=== PATIENT | male | born 1995 | race Caucasian/White ===

== ENCOUNTER 2017-07-11 08:23 | Inpatient (IN) | payer OTHER ==
[2017-07-11 10:33] VITALS: BMI 21.0
--- NOTE | 2017-07-11 12:53 | HP ---
COWS - Scale Resting Pulse: 0= [place] 80 or Below Sweatin=Flushed/Facial Moisture Restless Observation: 1= Difficult to Sit Still Pupil Size: 0= Normal to Room Light Bone or Joint Aches: 2= Severe Diffuse Aches Runny Nose/ Eye Tearin= Runny Nose/Eyes GI Upset > 30mins: 2= Nausea/Diarrhea Tremor Observation: 2= Slight Tremor Visible Yawning Observation: 2= >3x During Session Anxiety or Irritability: 2=Irritable/Anxious Goose Flesh Skin: 3=Piloerection COWS Score: 18 CIWA Score - CIWA Score Nausea/Vomitin-No Nausea/No Vomiting Muscle Tremors: 4-Moderate,w/Arms Extend Anxiety: 3 Agitation: 4-Moderately Restless Paroxysmal Sweats: 3 Orientation: 0-Oriented Tacttile Disturbances: 0-None Auditory Disturbances: 0-None Visual Disturbances: 0-None Headache: 2-Mild CIWA-Ar Total Score: 16 Admission ROS S - HPI Chief Complaint: I am here for detox. Allergies/Adverse Reactions: Allergies Allergy/AdvReac Type Severity Reaction Status Date / Time No Known Allergies Allergy Verified 07/11/17 10:18 History of Present Illness: pt is a 21yr old male with a history of alcohol, percocet and cannabis dependence seeking detox for treatment. Exam Limitations: No Limitations - Ebola screening Have you traveled outside of the country in the last 21 days: No Have you had contact with anyone from an Ebola affected area: No Have you been sick,other than usual withdrawal symptoms: No Do you have a fever: No - Review of Systems Constitutional: Chills, Diaphoresis, Loss of Appetite, Night Sweats, Changes in sleep EENT: reports: Tearing, Nose Congestion Respiratory: reports: Cough Cardiac: reports: No Symptoms Reported GI: reports: Nausea, Poor Appetite, Poor Fluid Intake, Abdominal cramping : reports: No Symptoms Reported Musculoskeletal: reports: Back Pain, Joint Pain Integumentary: reports: Flushing, Sweating Neuro: reports: Headache, Tingling, Tremors Endocrine: reports: Excessive Sweating, Flushing, Intolerance to Cold, Intolerance to Heat Hematology: reports: No Symptoms Reported Psychiatric: reports: No Sypmtoms Reported, Judgement Intact, Mood/Affect Appropiate, Orientated x3, Agitated, Anxious Other Systems: Reviewed and Negative Patient History - Patient Medical History Hx Anemia: No Hx Asthma: No Hx Chronic Obstructive Pulmonary Disease (COPD): No Hx Cancer: No Hx Cardiac Disorders: No Hx Congestive Heart Failure: No Hx Hypertension: No Hx Hypercholesterolemia: No Hx Pacemaker: No HX Cerebrovascular Accident: No Hx Seizures: No Hx Diabetes: No Hx Gastrointestinal Disorders: No Hx Liver Disease: No Hx Genitourinary Disorders: No Hx Sexually Transmitted Disorders: No Hx Renal Disease (ESRD): No Hx Thyroid Disease: No Hx Human Immunodeficiency Virus (HIV): No (negative) Hx Hepatitis C: No Hx Depression: No Hx Suicide Attempt: No (denies) Hx Bipolar Disorder: No Hx Schizophrenia: No - Patient Surgical History Past Surgical History: No Hx Neurologic Surgery: No Hx Cataract Extraction: No Hx Cardiac Surgery: No Hx Lung Surgery: No Hx Breast Surgery: No Hx Breast Biopsy: No Hx Abdominal Surgery: No Hx Appendectomy: No Hx Cholecystectomy: No Hx Genitourinary Surgery: No Hx Section: No Hx Orthopedic Surgery: No Anesthesia Reaction: No - PPD History Previous Implant?: Yes Documented Results: Negative w/o proof Implanted On Prior R Admission?: No PPD to be Administered?: Yes - Reproductive History Patient is a Female of Child Bearing Age (11 -55 yrs old): No - Smoking Cessation Smoking history: Current every day smoker Have you smoked in the past 12 months: Yes Aproximately how many cigarettes per day: 20 Hx Chewing Tobacco Use: No Initiated information on smoking cessation: Yes 'Breaking Loose' booklet given: 07/11/17 - Substance & Tx. History Hx Alcohol Use: Yes Hx Substance Use: Yes Substance Use Type: Alcohol, Heroin, Marijuana Hx Substance Use Treatment: No - Substances Abused Percocet Route: Oral Frequency: Daily Amount used: 4 tabs. (10 mg.) Age of first use: 20 Date of Last Use: 07/09/17 Alcohol-cognac Route: Oral Frequency: Daily Amount used: 2 pts. Age of first use: 20 Date of Last Use: 07/09/17 Marijuana Route: Smoking Frequency: Daily Amount used: $10 Age of first use: 18 Date of Last Use: 07/09/17 Family Disease History - Family Disease History Family History: Denies Admission Physical Exam BHS - Vital Signs Vital Signs: Vital Signs - 24 hr 07/11/17 10:19 Temperature 97.6 F Pulse Rate 76 Respiratory 18 Rate Blood Pressure 130/86 - Physical General Appearance: Yes: Appropriately Dressed, Moderate Distress, Tremorous, Irritable, Sweating, Anxious HEENTM: Yes: Hearing grossly Normal, Normal Voice, Nasal Congestion, Rhinorrhea Respiratory: Yes: Lungs Clear, Normal Breath Sounds, No Respiratory Distress Neck: Yes: No masses,lesions,Nodules Breast: Yes: Within Normal Limits Cardiology: Yes: Regular Rhythm, Regular Rate, S1, S2 Abdominal: Yes: Normal Bowel Sounds, Non Tender, Soft Genitourinary: Yes: Within Normal Limits Back: Yes: Normal Inspection Musculoskeletal: Yes: Back pain Extremities: Yes: Normal Capillary Refill, Normal Inspection, Tremors Neurological: Yes: Fully Oriented, Alert, Normal Response Integumentary: Yes: Normal Color, Diaphoresis Lymphatic: Yes: Within Normal Limits - Diagnostic (1) Alcohol dependence with uncomplicated withdrawal Current Visit: Yes Status: Chronic (2) Opioid dependence, uncomplicated Current Visit: Yes Status: Chronic Cleared for Admission [facility] - Detox or Rehab [facility] Level of Care: Medically Managed Detox Regimen/Protocol: Methadone/Librium [facility] Breath Alcohol Content Breath Alcohol Content: 0 Urine Drug Screen - Results Drug Screen Negative: No Urine Drug Screen Results: THC-Marijuana, OPI-Opiates, BZO-Benzodiazepines, OXY- Oxycodone
[2017-07-11] MEDS ORDERED: LOPERAMIDE HCL 2 MG CAPSULE PO PRN (13:26)
[2017-07-11] MEDS ORDERED: diphenhydrAMINE HCL 50 MG CAPSULE PO PRN (13:26)
[2017-07-11] MEDS ORDERED: NICOTINE POLACRILEX 4 MG GUM BC PRN (13:26)
[2017-07-11] MEDS ORDERED: IBUPROFEN 400 MG TABLET (FP) PO PRN (13:26)
[2017-07-11] MEDS ORDERED: MENTHOL/PHENOL 1 EACH UD MM PRN (13:26)
[2017-07-11] MEDS ORDERED: chlordiazePOXIDE HCL 25 MG CAPSULE PO PRN (13:26)
[2017-07-11] MEDS ORDERED: MAGNESIUM HYDROX 2400MG/30ML ORAL SUSPENSION 30 ML CUP PO PRN (13:26)
[2017-07-11] MEDS ORDERED: MAG HYDROX/AL HYDROX/SIMETH 30 ML UNIT-DOSE CUP PO PRN (13:26)
[2017-07-11] MEDS ORDERED: MAGNESIUM CITRATE 300 ML BOTTLE PO PRN (13:26)
[2017-07-11] MEDS ORDERED: hydrOXYzine PAMOATE 50 MG CAPSULE (FP) PO PRN (13:26)
[2017-07-11] MEDS ORDERED: guaiFENesin/D-METHORPHAN HB 10 ML UNIT-DOSE CUPS PO PRN (13:26)
[2017-07-11] MEDS ORDERED: ACETAMINOPHEN 325 MG TABLET (FP) PO PRN (13:26)
[2017-07-11] MEDS ORDERED: P-EPHED 60MG/TRIPROLIDI 2.5MG TABLET PO PRN (13:26)
[2017-07-11] MEDS ORDERED: chlordiazePOXIDE HCL 25 MG CAPSULE PO ONE (14:00)
[2017-07-11] MEDS ORDERED: METHADONE HCL 10 MG TABLET (FOR DETOX USE ONLY) PO ONE ×2 (14:00→23:00)
[2017-07-11 16:59] LABS: URINE APPEARANCE CLEAR; URINE BILIRUBIN NEGATIVE (NEGATIVE); URINE BLOOD NEGATIVE (NEGATIVE); URINE COLOR STRAW; URINE GLUCOSE (UA) NEGATIVE (NEGATIVE); URINE KETONE NEGATIVE (NEGATIVE); URINE LEUK ESTERASE NEGATIVE (NEGATIVE); URINE NITRITE NEGATIVE (NEGATIVE); URINE PROTEIN NEGATIVE (NEGATIVE); URINE UROBILINOGEN NEGATIVE mg/dL (0.2-1.0)
[2017-07-11] MEDS: chlordiazePOXIDE HCL 25 MG CAPSULE PO SCH ×2 (17:16→22:30)
[2017-07-11] MEDS: THIAMINE HCL 100 MG TABLET (FP) PO SCH (22:30)
[2017-07-12] MEDS: chlordiazePOXIDE HCL 25 MG CAPSULE PO SCH ×4 (05:26→22:18)
[2017-07-12 09:48] LABS: MCH 29.5 pg (25.7-33.7); MCHC 34.3 g/dl (32.0-35.9); MEAN PLT VOLUME 9.4 fl (7.5-11.1); PLATELET COUNT 297 K/MM3 (134-434); RDW 12.5 % (11.9-15.9); WHITE BLOOD COUNT 3.5 K/mm3 (4.0-10.0)
[2017-07-12 10:00] LABS: ALBUMIN 4.5 g/dl (3.4-5.0); ANION GAP 7 (8-16); CALCIUM 10.5 mg/dL (8.5-10.1); CO2 29 mmol/L (21-32); CREATININE 0.9 mg/dL (0.7-1.3); GLUCOSE,RANDOM 85 mg/dL (74-106); SGOT/AST 17 U/L (15-37); SGPT/ALT 20 U/L (12-78); TOT PROT 8.6 g/dl (6.4-8.2)
[2017-07-12] MEDS ORDERED: METHADONE HCL 10 MG TABLET (FOR DETOX USE ONLY) PO SCH (10:00)
[2017-07-12] MEDS ORDERED: PRENATAL VITAMINS W/ FOLIC ACID TABLET (FP) PO SCH (10:00)
[2017-07-12] MEDS ORDERED: NICOTINE 21 MG/24 HOURS TOPICAL PATCH TD SCH (10:00)
[2017-07-12 10:01] LABS: ALK PHOS 134 U/L (45-117)
--- NOTE | 2017-07-12 11:36 | EKG ---
Test Reason : Blood Pressure : / mmHG Vent. Rate : 061 BPM Atrial Rate : 061 BPM P-R Int : 130 ms QRS Dur : 102 ms QT Int : 390 ms P-R-T Axes : 055 070 054 degrees QTc Int : 392 ms SINUS RHYTHM WITH MARKED SINUS ARRHYTHMIA OTHERWISE NORMAL ECG NO PREVIOUS ECGS AVAILABLE Confirmed by TATY NAYLOR, NADINE ([id number]) on 07/12/2017 11:36:51 AM Referred By: Confirmed By:NADINE POSEY MD
--- NOTE | 2017-07-12 14:01 | PN ---
[facility] CIWA - CIWA Score Nausea/Vomitin-Mild Nausea/No Vomiting Muscle Tremors: 5 Anxiety: 3 Agitation: 1-Slight > Activity Paroxysmal Sweats: 3 Orientation: 0-Oriented Tacttile Disturbances: 1-Very Mild Itch/Numbness Auditory Disturbances: 2-Mild Harshness/Frighten Visual Disturbances: 2-Mild Sensitivity Headache: 0-None Present CIWA-Ar Total Score: 18 S COWS - Scale Resting Pulse: 1= [place] 81-100 Sweatin= Chills/Flushing Restless Observation: 1= Difficult to Sit Still Pupil Size: 0= Normal to Room Light Bone or Joint Aches: 1= Mild Discomfort Runny Nose/ Eye Tearin= Runny Nose/Eyes GI Upset > 30mins: 0= None Tremor Observation of Outstretched Hands: 2= Slight Tremor Visible Yawning Observation: 2= >3x During Session Anxiety or Irritability: 2=Irritable/Anxious Goose Flesh Skin: 0=Smooth Skin COWS Score: 12 S Progress Note (SOAP) Subjective: Tremors, Sweating, Interrupted sleep. Objective: PT. A & O X 3, OBSERVED AMBULATING ON UNIT. NO ACUTE DISTRESS. 07/12/17 13:59 Vital Signs Temperature 98.2 F 07/12/17 13:43 Pulse Rate 88 07/12/17 13:43 Respiratory Rate 18 07/12/17 13:43 Blood Pressure 124/89 07/12/17 13:43 O2 Sat by Pulse Oximetry (%) Laboratory Tests 07/11/17 07/12/17 07/12/17 15:00 06:00 06:00 WBC 3.5 L RBC 5.45 Hgb 16.1 Hct 46.9 MCV 86.0 MCH 29.5 MCHC 34.3 RDW 12.5 Plt Count 297 MPV 9.4 Sodium 138 Potassium 4.4 Chloride 102 Carbon Dioxide 29 Anion Gap 7 L BUN 9 Creatinine 0.9 Creat Clearance w eGFR > 60 Random Glucose 85 Calcium 10.5 H Total Bilirubin 1.0 AST 17 ALT 20 Alkaline Phosphatase 134 H Total Protein 8.6 H Albumin 4.5 Urine Color Straw Urine Appearance Clear Urine pH 6.0 Ur Specific [place] 1.015 Urine Protein Negative Urine Glucose (UA) Negative Urine Ketones Negative Urine Blood Negative Urine Nitrite Negative Urine Bilirubin Negative Urine Urobilinogen Negative Ur Leukocyte Esterase Negative RPR Titer 07/12/17 06:00 WBC RBC Hgb Hct MCV MCH MCHC RDW Plt Count MPV Sodium Potassium Chloride Carbon Dioxide Anion Gap BUN Creatinine Creat Clearance w eGFR Random Glucose Calcium Total Bilirubin AST ALT Alkaline Phosphatase Total Protein Albumin Urine Color Urine Appearance Urine pH Ur Specific [place] Urine Protein Urine Glucose (UA) Urine Ketones Urine Blood Urine Nitrite Urine Bilirubin Urine Urobilinogen Ur Leukocyte Esterase RPR Titer Nonreactive LABS NOTED. Assessment: 07/12/17 13:59 WITHDRAWAL SYMPTOMS. Plan: CONTINUE DETOX.
[2017-07-12] MEDS: THIAMINE HCL 100 MG TABLET (FP) PO SCH (22:17)
[2017-07-13] MEDS: chlordiazePOXIDE HCL 25 MG CAPSULE PO SCH (05:33)
[2017-07-13 06:28] VITALS: BP 107/75; PULSE 77; TEMP 97.5
--- NOTE | 2017-07-13 08:43 | DS ---
[facility] Detox Discharge Summary Admission Date: 07/11/17 Discharge Date: 07/13/17 - History Present History: Alcohol Dependence, Opioid Dependence Pertinent Past History: nicotine dependencne, insomnia, anxiety, depression - Physical Exam Results Vital Signs: Vital Signs Temperature 97.5 F L 07/13/17 06:27 Pulse Rate 77 07/13/17 06:27 Respiratory Rate 18 07/13/17 06:27 Blood Pressure 107/75 07/13/17 06:27 O2 Sat by Pulse Oximetry (%) withdrawal sx Laboratory Tests 07/11/17 07/12/17 07/12/17 15:00 06:00 06:00 WBC 3.5 L RBC 5.45 Hgb 16.1 Hct 46.9 MCV 86.0 MCH 29.5 MCHC 34.3 RDW 12.5 Plt Count 297 MPV 9.4 Sodium 138 Potassium 4.4 Chloride 102 Carbon Dioxide 29 Anion Gap 7 L BUN 9 Creatinine 0.9 Creat Clearance w eGFR > 60 Random Glucose 85 Calcium 10.5 H Total Bilirubin 1.0 AST 17 ALT 20 Alkaline Phosphatase 134 H Total Protein 8.6 H Albumin 4.5 Urine Color Straw Urine Appearance Clear Urine pH 6.0 Ur Specific [place] 1.015 Urine Protein Negative Urine Glucose (UA) Negative Urine Ketones Negative Urine Blood Negative Urine Nitrite Negative Urine Bilirubin Negative Urine Urobilinogen Negative Ur Leukocyte Esterase Negative RPR Titer 07/12/17 06:00 WBC RBC Hgb Hct MCV MCH MCHC RDW Plt Count MPV Sodium Potassium Chloride Carbon Dioxide Anion Gap BUN Creatinine Creat Clearance w eGFR Random Glucose Calcium Total Bilirubin AST ALT Alkaline Phosphatase Total Protein Albumin Urine Color Urine Appearance Urine pH Ur Specific [place] Urine Protein Urine Glucose (UA) Urine Ketones Urine Blood Urine Nitrite Urine Bilirubin Urine Urobilinogen Ur Leukocyte Esterase RPR Titer Nonreactive Pertinent Admission Physical Exam Findings: reshma sx - Treatment Hospital Course: Detox Protocol Followed - Medication Discharge Medications: Ambulatory Orders NK [No Known Home Medication] 07/11/17 - Diagnosis (1) Alcohol dependence with uncomplicated withdrawal Current Visit: Yes Status: Chronic (2) Opioid dependence, uncomplicated Current Visit: Yes Status: Chronic (3) Nicotine dependence Current Visit: Yes Status: Acute - AMA Did Patient Leave Against Medical Advice: Yes
[2017-07-13] MEDS ORDERED: METHADONE HCL 5 MG TABLET (FOR DETOX USE ONLY) PO SCH (10:00)
[2017-07-13] MEDS ORDERED: chlordiazePOXIDE 5 MG CAPSULE PO SCH (17:00)
[2017-07-14] MEDS ORDERED: chlordiazePOXIDE HCL 10 MG CAPSULE PO SCH (17:00)
[2017-07-15] MEDS ORDERED: METHADONE HCL 10 MG TABLET (FOR DETOX USE ONLY) PO SCH (10:00)
[2017-07-16] MEDS ORDERED: METHADONE HCL 5 MG TABLET (FOR DETOX USE ONLY) PO SCH (06:00)
== END 2017-07-13 09:08 | disposition left against medical advice (07) | DRG 770 ==
LOC: YASAS 08:23 → Y3N 13:05
PROVIDERS: ADMIT Internal Medicine Addiction Medicine; ATTEND Internal Medicine Addiction Medicine
PROC: HZ2ZZZZ Detoxification Services for Substance Abuse Treatment (ICD-10-PCS; principal; 2017-07-13)
DX: F11.20 Opioid dependence, uncomplicated (principal); F10.230 Alcohol dependence with withdrawal, uncomplicated; F17.210 Nicotine dependence, cigarettes, uncomplicated
CPT/HCPCS: 36415; 80053; 81003; 85027; 86593; 93005; 93010

== ENCOUNTER 2017-08-13 14:58 | Inpatient (IN) | payer OTHER ==
[2017-08-13 17:25] VITALS: BMI 22.9
--- NOTE | 2017-08-13 22:11 | HP ---
COWS - Scale Resting Pulse: 0= [place] 80 or Below Sweatin= Chills/Flushing Restless Observation: 1= Difficult to Sit Still Pupil Size: 1= Pupils >than Normal Bone or Joint Aches: 2= Severe Diffuse Aches Runny Nose/ Eye Tearin= Runny Nose/Eyes GI Upset > 30mins: 2= Nausea/Diarrhea Tremor Observation: 2= Slight Tremor Visible Yawning Observation: 1= 1-2x During Session Anxiety or Irritability: 2=Irritable/Anxious Goose Flesh Skin: 0=Smooth Skin COWS Score: 14 CIWA Score - CIWA Score Nausea/Vomitin-Mild Nausea/No Vomiting Muscle Tremors: 4-Moderate,w/Arms Extend Anxiety: 4-Mod. Anxious/Guarded Agitation: 4-Moderately Restless Paroxysmal Sweats: 1-Minimal Palms Moist Orientation: 0-Oriented Tacttile Disturbances: 0-None Auditory Disturbances: 0-None Visual Disturbances: 0-None Headache: 0-None Present CIWA-Ar Total Score: 14 Admission [facility] - HPI Chief Complaint: withdrawal sx Allergies/Adverse Reactions: Allergies Allergy/AdvReac Type Severity Reaction Status Date / Time No Known Allergies Allergy Verified 08/13/17 18:36 History of Present Illness: 21 years old male with long history of heroin xanax alcohol nicotine dependence denies medical issue has anxiety and depression is admitted to detox Exam Limitations: No Limitations - Ebola screening Have you traveled outside of the country in the last 21 days: No Have you had contact with anyone from an Ebola affected area: No Have you been sick,other than usual withdrawal symptoms: No Do you have a fever: No - Review of Systems Constitutional: Changes in sleep, Weight Stable EENT: reports: No Symptoms Reported Respiratory: reports: No Symptoms reported Cardiac: reports: No Symptoms Reported GI: reports: Nausea, Poor Fluid Intake, Abdominal cramping : reports: No Symptoms Reported Musculoskeletal: reports: Back Pain, Joint Pain, Muscle Pain, Neck Pain Integumentary: reports: No Symptoms Reported Neuro: reports: Tremors Endocrine: reports: No Symptoms Reported Hematology: reports: No Symptoms Reported Psychiatric: reports: Judgement Intact, Orientated x3, Anxious, Depressed Other Systems: Reviewed and Negative Patient History - Patient Medical History Hx Anemia: No Hx Asthma: No Hx Chronic Obstructive Pulmonary Disease (COPD): No Hx Cancer: No Hx Cardiac Disorders: No Hx Congestive Heart Failure: No Hx Hypertension: No Hx Hypercholesterolemia: No Hx Pacemaker: No HX Cerebrovascular Accident: No Hx Seizures: No Hx Dementia: No Hx Diabetes: No Hx Gastrointestinal Disorders: No Hx Liver Disease: No Hx Genitourinary Disorders: No Hx Sexually Transmitted Disorders: No Hx Renal Disease (ESRD): No Hx Thyroid Disease: No Hx Human Immunodeficiency Virus (HIV): No (negative) Hx Hepatitis C: No Hx Depression: Yes Hx Suicide Attempt: No Hx Bipolar Disorder: No Hx Schizophrenia: No - Patient Surgical History Past Surgical History: No Hx Neurologic Surgery: No Hx Cataract Extraction: No Hx Cardiac Surgery: No Hx Lung Surgery: No Hx Breast Surgery: No Hx Breast Biopsy: No Hx Abdominal Surgery: No Hx Appendectomy: No Hx Cholecystectomy: No Hx Genitourinary Surgery: No Hx Orthopedic Surgery: No - PPD History Previous Implant?: Yes Documented Results: Negative w/o proof Implanted On Prior R Admission?: Yes Date: 07/13/17 (no result AMA) PPD to be Administered?: Yes - Smoking Cessation Smoking history: Current every day smoker Have you smoked in the past 12 months: Yes Aproximately how many cigarettes per day: 40 Hx Chewing Tobacco Use: No Initiated information on smoking cessation: Yes 'Breaking Loose' booklet given: 08/13/17 - Substance & Tx. History Hx Substance Use: Yes Substance Use Type: Alcohol, Cocaine, Heroin, Marijuana, Tranquilizers - Substances Abused Alcohol Route: Oral Frequency: Daily Amount used: 1 liter cognac. Age of first use: 20 Date of Last Use: 08/10/17 Heroin Route: Inhalation Frequency: Daily Amount used: 3-5 bags Age of first use: 21 Date of Last Use: 08/12/17 Cocaine Route: Inhalation Frequency: 1-2 times per week Amount used: 3-4 bags Age of first use: 21 Date of Last Use: 08/09/17 Marijuana/Hashish Route: Smoking Frequency: Daily Amount used: 3 blunts Age of first use: 18 Date of Last Use: 08/12/17 Alprazolam (Xanax) Route: Oral Frequency: Daily Amount used: 4 MG Age of first use: 20 Date of Last Use: 08/12/17 Family Disease History - Family Disease History Family History: Denies Admission Physical Exam BHS - Vital Signs Vital Signs: Vital Signs - 24 hr 08/13/17 17:22 Temperature 96.9 F L Pulse Rate 72 Respiratory 20 Rate Blood Pressure 106/64 - Physical General Appearance: Yes: Appropriately Dressed, Mild Distress, Thin, Tremorous, Irritable, Sweating, Anxious HEENTM: Yes: Hearing grossly Normal, Normal ENT Inspection, Normocephalic, Normal Voice Respiratory: Yes: Chest Non-Tender, Lungs Clear, Normal Breath Sounds, No Respiratory Distress, No Accessory Muscle Use Neck: Yes: Supple, Trachea in good position Breast: Yes: Breasts Symetrical Cardiology: Yes: Regular Rhythm, Regular Rate, S1, S2 Abdominal: Yes: Non Tender, Soft, Increased Bowel Sounds Genitourinary: Yes: Within Normal Limits Back: Yes: Normal Inspection Musculoskeletal: Yes: full range of Motion, Gait Steady, Back pain, Muscle Pain Extremities: Yes: Normal Inspection, Normal Range of Motion, Non-Tender, Tremors Neurological: Yes: Fully Oriented, Alert, Motor Strength 5/5, Normal Response, Depressed Affect Integumentary: Yes: Warm Lymphatic: Yes: Within Normal Limits - Diagnostic (1) Nicotine dependence Current Visit: Yes Status: Acute Qualifiers: Nicotine product type: cigarettes Substance use status: in withdrawal Qualified Code(s): F17.213 - Nicotine dependence, cigarettes, with withdrawal; F17.213 - Nicotine dependence, cigarettes, with withdrawal (2) Alcohol dependence with uncomplicated withdrawal Current Visit: Yes Status: Acute (3) Opioid dependence, uncomplicated Current Visit: Yes Status: Acute (4) Sedative, hypnotic or anxiolytic dependence with withdrawal, uncomplicated Current Visit: Yes Status: Acute (5) Cocaine dependence, uncomplicated Current Visit: Yes Status: Chronic (6) Cannabis dependence, uncomplicated Current Visit: Yes Status: Chronic (7) Depression (emotion) Current Visit: Yes Status: Suspected Qualifiers: Depression Type: dysthymia Qualified Code(s): F34.1 - Dysthymic disorder; F34.1 - Dysthymic disorder; F34.1 - Dysthymic disorder Cleared for Admission [facility] - Detox or Rehab [facility] Level of Care: Medically Managed Detox Regimen/Protocol: Methadone/Valium [facility] Breath Alcohol Content Breath Alcohol Content: 0 Urine Drug Screen - Results Drug Screen Negative: No Urine Drug Screen Results: THC-Marijuana, PADMINI-Cocaine, OPI-Opiates, BZO- Benzodiazepines
[2017-08-13] MEDS ORDERED: IBUPROFEN 400 MG TABLET (FP) PO PRN (22:15)
[2017-08-13] MEDS ORDERED: P-EPHED 60MG/TRIPROLIDI 2.5MG TABLET PO PRN (22:15)
[2017-08-13] MEDS ORDERED: MAG HYDROX/AL HYDROX/SIMETH 30 ML UNIT-DOSE CUP PO PRN (22:15)
[2017-08-13] MEDS ORDERED: diazePAM 5 MG TABLET PO ONE (22:15)
[2017-08-13] MEDS ORDERED: guaiFENesin/D-METHORPHAN HB 10 ML UNIT-DOSE CUPS PO PRN (22:15)
[2017-08-13] MEDS ORDERED: MENTHOL/PHENOL 1 EACH UD MM PRN (22:15)
[2017-08-13] MEDS ORDERED: MAGNESIUM CITRATE 300 ML BOTTLE PO PRN (22:15)
[2017-08-13] MEDS ORDERED: LOPERAMIDE HCL 2 MG CAPSULE PO PRN (22:15)
[2017-08-13] MEDS ORDERED: METHADONE HCL 10 MG TABLET (FOR DETOX USE ONLY) PO ONE ×2 (22:15→23:00)
[2017-08-13] MEDS ORDERED: ACETAMINOPHEN 325 MG TABLET (FP) PO PRN (22:15)
[2017-08-13] MEDS ORDERED: NICOTINE POLACRILEX 4 MG GUM BC PRN (22:15)
[2017-08-13] MEDS ORDERED: MAGNESIUM HYDROX 2400MG/30ML ORAL SUSPENSION 30 ML CUP PO PRN (22:15)
[2017-08-14] MEDS: diazePAM 5 MG TABLET PO SCH ×4 (00:05→22:17)
[2017-08-14 01:09] LABS: URINE APPEARANCE CLEAR; URINE BILIRUBIN NEGATIVE (NEGATIVE); URINE BLOOD NEGATIVE (NEGATIVE); URINE COLOR YELLOW; URINE GLUCOSE (UA) NEGATIVE (NEGATIVE); URINE KETONE NEGATIVE (NEGATIVE); URINE LEUK ESTERASE NEGATIVE (NEGATIVE); URINE NITRITE NEGATIVE (NEGATIVE); URINE PROTEIN NEGATIVE (NEGATIVE); URINE UROBILINOGEN NEGATIVE mg/dL (0.2-1.0)
[2017-08-14 09:46] LABS: MCH 29.5 pg (25.7-33.7); MEAN CELL VOLUME 84.3 fl (80-96); MEAN PLT VOLUME 9.2 fl (7.5-11.1); PLATELET COUNT 183 K/MM3 (134-434); RDW 12.4 % (11.9-15.9); WHITE BLOOD COUNT 3.7 K/mm3 (4.0-10.0)
[2017-08-14] MEDS ORDERED: METHADONE HCL 10 MG TABLET (FOR DETOX USE ONLY) PO SCH (10:00)
[2017-08-14 10:03] LABS: ALBUMIN 3.3 g/dl (3.4-5.0); ALK PHOS 108 U/L (45-117); ANION GAP 4 (8-16); BILIRUBIN,TOTAL 0.9 mg/dL (0.2-1.0); CO2 30 mmol/L (21-32); CREATININE 0.9 mg/dL (0.7-1.3); GLUCOSE,RANDOM 87 mg/dL (74-106); SGOT/AST 12 U/L (15-37); SGPT/ALT 17 U/L (12-78); TOT PROT 6.5 g/dl (6.4-8.2)
[2017-08-14] MEDS: NICOTINE 21 MG/24 HOURS TOPICAL PATCH TD SCH (10:41)
[2017-08-14] MEDS: PRENATAL VITAMINS W/ FOLIC ACID TABLET (FP) PO SCH (10:41)
[2017-08-14] MEDS: diazePAM 5 MG TABLET PO PRN ×2 (10:41→17:10)
[2017-08-14 11:42] LABS: HIV 1 & 2 AB NEGATIVE; HIV 1 AGp24 NEGATIVE
[2017-08-14] MEDS ORDERED: FLU VACCINE QUAD 60 MCG/0.5 ML (MDV 17-18) IM ONE (12:00)
--- NOTE | 2017-08-14 13:03 | CONSULT ---
[facility] Psychiatric Consult - Data Date of interview: 08/14/17 Admission source: Self-referred Identifying data: Mr Car Antunez is a 21 years old single male, unemployed, domiciled living with family Substance Abuse History: Reports history of alcohol, heroin, cocaine, xanax ans marijuana use. Consumes one litre of cognac, 3-5 bags of heroin, 3-4 bags of cocaine, 4 mg of xanax and 3 blunts of marijuana daily Medical History: Unremakable. Smokes cigarettes 2ppd Psychiatric History: Denies previous psychiatric treatment Physical/Sexual Abuse/Trauma History: Denies history of verbal, physical or sexual abuse as well as DV relationship Additional Comment: No criminal history Mental Status Exam - Mental Status Exam Alert and Oriented to: Time, Place, Person Cognitive Function: Fair Patient Appearance: Well Groomed Mood: Anxious Affect: Appropriate Patient Behavior: Cooperative Speech Pattern: Clear Voice Loudness: Normal Thought Process: Intact, Goal Oriented Thought Disorder: Not Present Hallucinations: Denies Suicidal Ideation: Denies Homicidal Ideation: Denies Insight/Judgement: Poor Sleep: Well Appetite: Good Muscle strength/Tone: Normal Gait/Station: Normal Psychiatric Findings - Problem List ([place] 1, 2,3) (1) Substance-induced anxiety disorder Current Visit: Yes Status: Acute (2) Alcohol dependence with uncomplicated withdrawal Current Visit: Yes Status: Acute (3) Opioid dependence, uncomplicated Current Visit: Yes Status: Acute (4) Cocaine dependence, uncomplicated Current Visit: Yes Status: Chronic (5) Cannabis dependence, uncomplicated Current Visit: Yes Status: Chronic (6) Sedative, hypnotic or anxiolytic dependence with withdrawal, uncomplicated Current Visit: Yes Status: Acute (7) Nicotine dependence Current Visit: Yes Status: Acute Qualifiers: Nicotine product type: cigarettes Substance use status: in withdrawal Qualified Code(s): F17.213 - Nicotine dependence, cigarettes, with withdrawal; F17.213 - Nicotine dependence, cigarettes, with withdrawal - Initial Treatment Plan Initial Treatment Plan: Continue inpatient detoxification
--- NOTE | 2017-08-14 13:07 | PN ---
[facility] CIWA - CIWA Score Nausea/Vomitin-No Nausea/No Vomiting Muscle Tremors: 3 Anxiety: 4-Mod. Anxious/Guarded Agitation: 3 Paroxysmal Sweats: 1-Minimal Palms Moist Orientation: 0-Oriented Tacttile Disturbances: 3-Moderate Itch/Numb/Burn Auditory Disturbances: 0-None Visual Disturbances: 0-None Headache: 0-None Present CIWA-Ar Total Score: 14 S COWS - Scale Resting Pulse: 1= [place] 81-100 Sweatin= Chills/Flushing Restless Observation: 3= Extraneous Movement Pupil Size: 0= Normal to Room Light Bone or Joint Aches: 2= Severe Diffuse Aches Runny Nose/ Eye Tearin= Nasal Congestion GI Upset > 30mins: 0= None Tremor Observation of Outstretched Hands: 1= Tremor Notrees, Not Seen Yawning Observation: 1= 1-2x During Session Anxiety or Irritability: 2=Irritable/Anxious Goose Flesh Skin: 0=Smooth Skin COWS Score: 12 S Progress Note (SOAP) Subjective: ANXIETY,SWEATS, FATIGUE Objective: 08/14/17 13:06 Vital Signs Temperature 96.6 F L 08/14/17 09:16 Pulse Rate 87 08/14/17 09:16 Respiratory Rate 18 08/14/17 09:16 Blood Pressure 111/71 08/14/17 09:16 O2 Sat by Pulse Oximetry (%) Laboratory Last Values WBC 3.7 K/mm3 (4.0-10.0) L 08/14/17 08:00 RBC 4.63 M/mm3 (4.00-5.60) 08/14/17 08:00 Hgb 13.7 GM/dL (11.7-16.9) D 08/14/17 08:00 Hct 39.0 % (35.4-49) D 08/14/17 08:00 MCV 84.3 fl (80-96) 08/14/17 08:00 MCH 29.5 pg (25.7-33.7) 08/14/17 08:00 MCHC 35.0 g/dl (32.0-35.9) 08/14/17 08:00 RDW 12.4 % (11.9-15.9) 08/14/17 08:00 Plt Count 183 K/MM3 (134-434) D 08/14/17 08:00 MPV 9.2 fl (7.5-11.1) 08/14/17 08:00 Sodium 139 mmol/L (136-145) 08/14/17 08:00 Potassium 4.4 mmol/L (3.5-5.1) 08/14/17 08:00 Chloride 105 mmol/L (98-107) 08/14/17 08:00 Carbon Dioxide 30 mmol/L (21-32) 08/14/17 08:00 Anion Gap 4 (8-16) L 08/14/17 08:00 BUN 11 mg/dL (7-18) D 08/14/17 08:00 Creatinine 0.9 mg/dL (0.7-1.3) 08/14/17 08:00 Creat Clearance w eGFR > 60 (>60) 08/14/17 08:00 Random Glucose 87 mg/dL (74-106) 08/14/17 08:00 Calcium 9.0 mg/dL (8.5-10.1) 08/14/17 08:00 Total Bilirubin 0.9 mg/dL (0.2-1.0) 08/14/17 08:00 AST 12 U/L (15-37) L D 08/14/17 08:00 ALT 17 U/L (12-78) 08/14/17 08:00 Alkaline Phosphatase 108 U/L (45-117) 08/14/17 08:00 Total Protein 6.5 g/dl (6.4-8.2) D 08/14/17 08:00 Albumin 3.3 g/dl (3.4-5.0) L D 08/14/17 08:00 Urine Color Yellow 08/13/17 00:05 Urine Appearance Clear 08/13/17 00:05 Urine pH 5.0 (5.0-8.0) 08/13/17 00:05 Ur Specific [place] >= 1.030 (1.005-1.025) H 08/13/17 00:05 Urine Protein Negative (NEGATIVE) 08/13/17 00:05 Urine Glucose (UA) Negative (NEGATIVE) 08/13/17 00:05 Urine Ketones Negative (NEGATIVE) 08/13/17 00:05 Urine Blood Negative (NEGATIVE) 08/13/17 00:05 Urine Nitrite Negative (NEGATIVE) 08/13/17 00:05 Urine Bilirubin Negative (NEGATIVE) 08/13/17 00:05 Urine Urobilinogen Negative mg/dL (0.2-1.0) 08/13/17 00:05 RPR Titer Nonreactive (NONREACTIVE) 08/14/17 08:00 HIV 1&2 Antibody Screen Negative 08/14/17 08:00 HIV P24 Antigen Negative 08/14/17 08:00 Assessment: 08/14/17 13:06 WITHDRAWAL SX Plan: CONTINUE DETOX
--- NOTE | 2017-08-14 20:43 | EKG ---
Test Reason : Blood Pressure : / mmHG Vent. Rate : 050 BPM Atrial Rate : 050 BPM P-R Int : 144 ms QRS Dur : 096 ms QT Int : 398 ms P-R-T Axes : 057 074 058 degrees QTc Int : 362 ms SINUS BRADYCARDIA WITH MARKED SINUS ARRHYTHMIA PROBALE EARLY REPOLARIZATION WHEN COMPARED WITH ECG OF 11-JUL-2017 13:48, REPEAT EKG IF CLINICALLY INDICATED Confirmed by SIMEON CARDENAS MD ([id number]) on 08/14/2017 8:42:43 PM Referred By: Confirmed By:SIMEON CARDENAS MD
[2017-08-14] MEDS: diphenhydrAMINE HCL 50 MG CAPSULE PO PRN (22:17)
[2017-08-14] MEDS: THIAMINE HCL 100 MG TABLET (FP) PO SCH (22:17)
[2017-08-15] MEDS: diazePAM 5 MG TABLET PO SCH ×2 (10:38→22:10)
[2017-08-15] MEDS: NICOTINE 21 MG/24 HOURS TOPICAL PATCH TD SCH (10:38)
[2017-08-15] MEDS: PRENATAL VITAMINS W/ FOLIC ACID TABLET (FP) PO SCH (10:38)
[2017-08-15] MEDS: METHADONE HCL 5 MG TABLET (FOR DETOX USE ONLY) PO SCH (10:38)
[2017-08-15] MEDS: diazePAM 5 MG TABLET PO PRN (16:43)
[2017-08-15] MEDS: diphenhydrAMINE HCL 50 MG CAPSULE PO PRN (22:10)
[2017-08-15] MEDS: THIAMINE HCL 100 MG TABLET (FP) PO SCH (22:10)
[2017-08-16] MEDS: diazePAM 5 MG TABLET PO PRN (05:12)
[2017-08-16 06:57] VITALS: TEMP 97.2
[2017-08-16 09:05] VITALS: BP 95/61; PULSE 75
[2017-08-16] MEDS: PRENATAL VITAMINS W/ FOLIC ACID TABLET (FP) PO SCH (09:30)
[2017-08-16] MEDS: diazePAM 5 MG TABLET PO SCH (09:31)
[2017-08-16] MEDS: METHADONE HCL 5 MG TABLET (FOR DETOX USE ONLY) PO SCH (09:31)
[2017-08-16] MEDS: NICOTINE 21 MG/24 HOURS TOPICAL PATCH TD SCH (09:31)
--- NOTE | 2017-08-16 11:49 | DS ---
[facility] Detox Discharge Summary Admission Date: 08/13/17 Discharge Date: 08/16/17 - History Present History: Alcohol Dependence, Cannabis Dependence, Cocaine Dependence, Opioid Dependence, Sedative Dependence Additional Comments: PT DECLINED TO COMPLETE DETOX DESPITE ALL EFFORTS TO ENCOURAGE PT TO DO SO. PT STATES HE WANTS TO LEAVE AND WILL BE FOLLOWING UP WITH HIS DOCTOR(NAME FAMILIASole) FOR SUBOXONE RX. PT REMINDED THE DANGERS OF HIS PREMATURE EXIT AND CONSEQUENCIES OF NONCOMPLIANT WITH TX RECOMMENDATIONS. Pertinent Past History: DEPRESSION/ANXIETY - Physical Exam Results Vital Signs: Vital Signs Temperature 97.2 F L 08/16/17 06:56 Pulse Rate 75 08/16/17 09:04 Respiratory Rate 18 08/16/17 09:04 Blood Pressure 95/61 08/16/17 09:04 O2 Sat by Pulse Oximetry (%) Pertinent Admission Physical Exam Findings: WITHDRAWAL SX Laboratory Last Values WBC 3.7 K/mm3 (4.0-10.0) L 08/14/17 08:00 RBC 4.63 M/mm3 (4.00-5.60) 08/14/17 08:00 Hgb 13.7 GM/dL (11.7-16.9) D 08/14/17 08:00 Hct 39.0 % (35.4-49) D 08/14/17 08:00 MCV 84.3 fl (80-96) 08/14/17 08:00 MCH 29.5 pg (25.7-33.7) 08/14/17 08:00 MCHC 35.0 g/dl (32.0-35.9) 08/14/17 08:00 RDW 12.4 % (11.9-15.9) 08/14/17 08:00 Plt Count 183 K/MM3 (134-434) D 08/14/17 08:00 MPV 9.2 fl (7.5-11.1) 08/14/17 08:00 Sodium 139 mmol/L (136-145) 08/14/17 08:00 Potassium 4.4 mmol/L (3.5-5.1) 08/14/17 08:00 Chloride 105 mmol/L (98-107) 08/14/17 08:00 Carbon Dioxide 30 mmol/L (21-32) 08/14/17 08:00 Anion Gap 4 (8-16) L 08/14/17 08:00 BUN 11 mg/dL (7-18) D 08/14/17 08:00 Creatinine 0.9 mg/dL (0.7-1.3) 08/14/17 08:00 Creat Clearance w eGFR > 60 (>60) 08/14/17 08:00 Random Glucose 87 mg/dL (74-106) 08/14/17 08:00 Calcium 9.0 mg/dL (8.5-10.1) 08/14/17 08:00 Total Bilirubin 0.9 mg/dL (0.2-1.0) 08/14/17 08:00 AST 12 U/L (15-37) L D 08/14/17 08:00 ALT 17 U/L (12-78) 08/14/17 08:00 Alkaline Phosphatase 108 U/L (45-117) 08/14/17 08:00 Total Protein 6.5 g/dl (6.4-8.2) D 08/14/17 08:00 Albumin 3.3 g/dl (3.4-5.0) L D 08/14/17 08:00 Urine Color Yellow 08/13/17 00:05 Urine Appearance Clear 08/13/17 00:05 Urine pH 5.0 (5.0-8.0) 08/13/17 00:05 Ur Specific [place] >= 1.030 (1.005-1.025) H 08/13/17 00:05 Urine Protein Negative (NEGATIVE) 08/13/17 00:05 Urine Glucose (UA) Negative (NEGATIVE) 08/13/17 00:05 Urine Ketones Negative (NEGATIVE) 08/13/17 00:05 Urine Blood Negative (NEGATIVE) 08/13/17 00:05 Urine Nitrite Negative (NEGATIVE) 08/13/17 00:05 Urine Bilirubin Negative (NEGATIVE) 08/13/17 00:05 Urine Urobilinogen Negative mg/dL (0.2-1.0) 08/13/17 00:05 RPR Titer Nonreactive (NONREACTIVE) 08/14/17 08:00 HIV 1&2 Antibody Screen Negative 08/14/17 08:00 HIV P24 Antigen Negative 08/14/17 08:00 - Treatment Hospital Course: Discharged Condition Good - Medication Discharge Medications: Ambulatory Orders NK [No Known Home Medication] 07/11/17 - Diagnosis (1) Alcohol dependence with uncomplicated withdrawal Status: Acute (2) Nicotine dependence Status: Acute Qualifiers: Nicotine product type: cigarettes Substance use status: in withdrawal Qualified Code(s): F17.213 - Nicotine dependence, cigarettes, with withdrawal; F17.213 - Nicotine dependence, cigarettes, with withdrawal (3) Opioid dependence, uncomplicated Status: Acute (4) Sedative, hypnotic or anxiolytic dependence with withdrawal, uncomplicated Status: Acute (5) Cannabis dependence, uncomplicated Status: Acute (6) Cocaine dependence, uncomplicated Status: Acute (7) Substance-induced anxiety disorder Status: Acute - AMA Did Patient Leave Against Medical Advice: Yes (AMA)
[2017-08-17] MEDS ORDERED: diazePAM 5 MG TABLET PO SCH (10:00)
[2017-08-17] MEDS ORDERED: METHADONE HCL 10 MG TABLET (FOR DETOX USE ONLY) PO SCH (10:00)
[2017-08-18] MEDS ORDERED: METHADONE HCL 5 MG TABLET (FOR DETOX USE ONLY) PO SCH (06:00)
== END 2017-08-16 11:21 | disposition left against medical advice (07) | DRG 770 ==
LOC: YASAS 14:58 → Y3N 22:43
PROVIDERS: ADMIT Internal Medicine; ATTEND Internal Medicine
PROC: HZ2ZZZZ Detoxification Services for Substance Abuse Treatment (ICD-10-PCS; principal; 2017-08-13)
DX: F11.23 Opioid dependence with withdrawal (principal); F13.230 Sedative, hypnotic or anxiolytic dependence with withdrawal, uncomplicated; F10.230 Alcohol dependence with withdrawal, uncomplicated; F14.20 Cocaine dependence, uncomplicated; F12.20 Cannabis dependence, uncomplicated; F17.213 Nicotine dependence, cigarettes, with withdrawal; F19.280 Other psychoactive substance dependence with psychoactive substance-induced anxiety disorder
CPT/HCPCS: 36415; 80053; 81003; 85027; 86593; 87389; 93005; 93010

== ENCOUNTER 2017-10-30 17:25 | Inpatient (IN) | payer OTHER ==
[2017-10-30 18:00] VITALS: BMI 23.1
--- NOTE | 2017-10-30 19:49 | HP ---
COWS - Scale Resting Pulse: 0= [place] 80 or Below Sweatin= Chills/Flushing Restless Observation: 3= Extraneous Movement Pupil Size: 0= Normal to Room Light Bone or Joint Aches: 2= Severe Diffuse Aches Runny Nose/ Eye Tearin= Runny Nose/Eyes GI Upset > 30mins: 2= Nausea/Diarrhea Tremor Observation: 2= Slight Tremor Visible Yawning Observation: 0= None Anxiety or Irritability: 2=Irritable/Anxious Goose Flesh Skin: 0=Smooth Skin COWS Score: 14 Admission ROS S - HPI Chief Complaint: withdrawal sx Allergies/Adverse Reactions: Allergies Allergy/AdvReac Type Severity Reaction Status Date / Time No Known Allergies Allergy Verified 10/30/17 18:16 Exam Limitations: No Limitations - Ebola screening Have you traveled outside of the country in the last 21 days: No Have you had contact with anyone from an Ebola affected area: No Have you been sick,other than usual withdrawal symptoms: No Do you have a fever: No - Review of Systems Constitutional: Loss of Appetite, Changes in sleep, Unintentional Wgt. Loss, Unexplained wgt Loss EENT: reports: No Symptoms Reported, Nose Congestion Respiratory: reports: Productive cough (brownish) Cardiac: reports: No Symptoms Reported GI: reports: Nausea, Poor Appetite, Poor Fluid Intake, Abdominal cramping : reports: No Symptoms Reported Musculoskeletal: reports: Back Pain, Joint Pain, Muscle Pain, Neck Pain Integumentary: reports: No Symptoms Reported Neuro: reports: Tremors Endocrine: reports: No Symptoms Reported Hematology: reports: No Symptoms Reported Psychiatric: reports: Judgement Intact, Anxious, Depressed Other Systems: Reviewed and Negative Patient History - Patient Medical History Hx Anemia: No Hx Asthma: No Hx Chronic Obstructive Pulmonary Disease (COPD): No Hx Cancer: No Hx Cardiac Disorders: No Hx Congestive Heart Failure: No Hx Hypertension: No Hx Hypercholesterolemia: No Hx Pacemaker: No HX Cerebrovascular Accident: No Hx Seizures: No Hx Dementia: No Hx Diabetes: No Hx Gastrointestinal Disorders: No Hx Liver Disease: No Hx Genitourinary Disorders: No Hx Sexually Transmitted Disorders: No Hx Renal Disease (ESRD): No Hx Thyroid Disease: No Hx Human Immunodeficiency Virus (HIV): No (negative) Hx Hepatitis C: No Hx Depression: Yes Hx Suicide Attempt: No Hx Bipolar Disorder: No Hx Schizophrenia: No - Patient Surgical History Past Surgical History: No Hx Neurologic Surgery: No Hx Cataract Extraction: No Hx Cardiac Surgery: No Hx Lung Surgery: No Hx Breast Surgery: No Hx Breast Biopsy: No Hx Abdominal Surgery: No Hx Appendectomy: No Hx Cholecystectomy: No Hx Genitourinary Surgery: No Hx Orthopedic Surgery: No Anesthesia Reaction: No - PPD History Previous Implant?: Yes Documented Results: Negative w/proof Implanted On Prior [facility] Admission?: Yes Date: 08/15/17 Results: 0MM PPD to be Administered?: No - Reproductive History Patient : No - Smoking Cessation Smoking history: Current every day smoker Have you smoked in the past 12 months: Yes Aproximately how many cigarettes per day: 60 Hx Chewing Tobacco Use: No Initiated information on smoking cessation: Yes 'Breaking Loose' booklet given: 10/30/17 - Substances Abused Heroin Route: Inhalation Frequency: Daily Amount used: 1 GRAM(25BAGS) Age of first use: 20 Date of Last Use: 10/30/17 ETOH Route: Oral Frequency: 1-2 times per week Amount used: 1 PINT vodka Age of first use: 20 Date of Last Use: 10/23/17 XANAX Route: Oral Frequency: 1-2 times per week Amount used: 2MG Age of first use: 19 Date of Last Use: 10/23/17 PERCOCET Route: Oral Frequency: Daily Amount used: $11 Age of first use: 19 Date of Last Use: 10/29/17 Family Disease History - Family Disease History Family History: Unremarkable Admission Physical Exam BHS - Vital Signs Vital Signs: Vital Signs - 24 hr 10/30/17 17:56 Temperature 96.0 F L Pulse Rate 71 Respiratory 18 Rate Blood Pressure 107/70 - Physical General Appearance: Yes: Appropriately Dressed, Mild Distress, Thin, Tremorous, Irritable, Sweating, Anxious HEENTM: Yes: Hearing grossly Normal, Normal ENT Inspection, Normocephalic, Normal Voice Respiratory: Yes: Chest Non-Tender, Lungs Clear, Normal Breath Sounds, No Respiratory Distress, No Accessory Muscle Use Neck: Yes: Supple, Trachea in good position Breast: Yes: Breasts Symetrical Cardiology: Yes: Regular Rhythm, Regular Rate, S1, S2 Abdominal: Yes: Non Tender, Soft, Increased Bowel Sounds Genitourinary: Yes: Within Normal Limits Back: Yes: Normal Inspection Musculoskeletal: Yes: full range of Motion, Gait Steady, Back pain, Muscle Pain Extremities: Yes: Normal Inspection, Normal Range of Motion, Non-Tender, Tremors Neurological: Yes: Alert, Motor Strength 5/5, Normal Response, Depressed Affect Integumentary: Yes: Warm Lymphatic: Yes: Within Normal Limits - Diagnostic (1) Weight loss Current Visit: Yes Status: Acute (2) Nicotine dependence Current Visit: Yes Status: Acute Qualifiers: Nicotine product type: cigarettes Substance use status: in withdrawal Qualified Code(s): F17.213 - Nicotine dependence, cigarettes, with withdrawal (3) Opioid dependence, uncomplicated Current Visit: Yes Status: Acute (4) Depression (emotion) Current Visit: Yes Status: Suspected Qualifiers: Depression Type: dysthymia Qualified Code(s): F34.1 - Dysthymic disorder Cleared for Admission [facility] - Detox or Rehab [facility] Level of Care: Medically Managed Detox Regimen/Protocol: Methadone [facility] Breath Alcohol Content Breath Alcohol Content: 0 Urine Drug Screen - Results Drug Screen Negative: No Urine Drug Screen Results: THC-Marijuana, OPI-Opiates, BZO-Benzodiazepines, OXY- Oxycodone
[2017-10-30] MEDS ORDERED: guaiFENesin/D-METHORPHAN HB 10 ML UNIT-DOSE CUPS PO PRN (19:51)
[2017-10-30] MEDS ORDERED: METHADONE HCL 10 MG TABLET (FOR DETOX USE ONLY) PO ONE ×3 (19:51→23:00)
[2017-10-30] MEDS ORDERED: P-EPHED 60MG/TRIPROLIDI 2.5MG TABLET PO PRN (19:51)
[2017-10-30] MEDS ORDERED: LOPERAMIDE HCL 2 MG CAPSULE PO PRN (19:51)
[2017-10-30] MEDS ORDERED: NICOTINE POLACRILEX 4 MG GUM BUC PRN (19:51)
[2017-10-30] MEDS ORDERED: MAGNESIUM HYDROX 2400MG/30ML ORAL SUSPENSION 30 ML CUP PO PRN (19:51)
[2017-10-30] MEDS ORDERED: MENTHOL/PHENOL 1 EACH UD MM PRN (19:51)
[2017-10-30] MEDS ORDERED: IBUPROFEN 400 MG TABLET (FP) PO PRN (19:51)
[2017-10-30] MEDS ORDERED: MAG HYDROX/AL HYDROX/SIMETH 30 ML UNIT-DOSE CUP PO PRN (19:51)
[2017-10-30] MEDS ORDERED: MAGNESIUM CITRATE 300 ML BOTTLE PO PRN (19:51)
[2017-10-30] MEDS: diazePAM 5 MG TABLET PO PRN (22:47)
[2017-10-30] MEDS: THIAMINE HCL 100 MG TABLET (FP) PO SCH (22:47)
[2017-10-31 01:23] LABS: URINE APPEARANCE CLEAR; URINE BILIRUBIN NEGATIVE (NEGATIVE); URINE BLOOD NEGATIVE (NEGATIVE); URINE COLOR YELLOW; URINE GLUCOSE (UA) NEGATIVE (NEGATIVE); URINE KETONE NEGATIVE (NEGATIVE); URINE LEUK ESTERASE NEGATIVE (NEGATIVE); URINE NITRITE NEGATIVE (NEGATIVE); URINE PROTEIN NEGATIVE (NEGATIVE); URINE UROBILINOGEN NEGATIVE mg/dL (0.2-1.0)
[2017-10-31 09:54] LABS: URINE LEUK ESTERASE Negative (NEGATIVE)
--- NOTE | 2017-10-31 09:58 | EKG ---
Test Reason : Blood Pressure : / mmHG Vent. Rate : 069 BPM Atrial Rate : 069 BPM P-R Int : 150 ms QRS Dur : 088 ms QT Int : 358 ms P-R-T Axes : 046 072 055 degrees QTc Int : 383 ms NORMAL SINUS RHYTHM WITH SINUS ARRHYTHMIA NORMAL ECG WHEN COMPARED WITH ECG OF 14-AUG-2017 00:16, NO SIGNIFICANT CHANGE WAS FOUND Confirmed by SHARRI JOE MD ([id number]) on 10/31/2017 9:58:17 AM Referred By: Confirmed By:SHARRI JOE MD
[2017-10-31] MEDS ORDERED: METHADONE HCL 10 MG TABLET (FOR DETOX USE ONLY) PO SCH (10:00)
[2017-10-31 10:09] LABS: MCHC 34.4 g/dl (32.0-35.9); MEAN CELL VOLUME 84.4 fl (80-96); PLATELET COUNT 197 K/MM3 (134-434); RDW 12.8 % (11.9-15.9); WHITE BLOOD COUNT 3.7 K/mm3 (4.0-10.0)
[2017-10-31] MEDS: NICOTINE 21 MG/24 HOURS TOPICAL PATCH TD SCH (10:18)
[2017-10-31] MEDS: diazePAM 5 MG TABLET PO PRN ×2 (10:18→21:05)
[2017-10-31] MEDS: PRENATAL VITAMINS W/ FOLIC ACID TABLET (FP) PO SCH (10:18)
[2017-10-31 10:38] LABS: ALBUMIN 3.5 g/dl (3.4-5.0); ALK PHOS 113 U/L (45-117); ANION GAP 7 (8-16); BILIRUBIN,TOTAL 0.6 mg/dL (0.2-1.0); CALCIUM 8.8 mg/dL (8.5-10.1); CO2 27 mmol/L (21-32); CREATININE 0.7 mg/dL (0.7-1.3); GLUCOSE,RANDOM 86 mg/dL (74-106); SGOT/AST 12 U/L (15-37); SGPT/ALT 20 U/L (12-78); TOT PROT 6.8 g/dl (6.4-8.2)
--- NOTE | 2017-10-31 11:31 | PN ---
BHS COWS - Scale Resting Pulse: 0= [place] 80 or Below Sweatin= Chills/Flushing Restless Observation: 1= Difficult to Sit Still Pupil Size: 0= Normal to Room Light Bone or Joint Aches: 1= Mild Discomfort Runny Nose/ Eye Tearin= Nasal Congestion GI Upset > 30mins: 1= Stomach Cramp Tremor Observation of Outstretched Hands: 2= Slight Tremor Visible Yawning Observation: 2= >3x During Session Anxiety or Irritability: 2=Irritable/Anxious Goose Flesh Skin: 3=Piloerection COWS Score: 14 BHS Progress Note (SOAP) Subjective: Stomach Cramping, Sweating, Tremors. Objective: PT. A & O X 3, OBSERVED AMBULATING ON UNIT. NO ACUTE DISTRESS. 10/31/17 11:32 Vital Signs Temperature 96.5 F L 10/31/17 09:14 Pulse Rate 56 L 10/31/17 09:14 Respiratory Rate 18 10/31/17 09:14 Blood Pressure 122/72 10/31/17 09:14 O2 Sat by Pulse Oximetry (%) Laboratory Tests 10/30/17 10/31/17 10/31/17 23:51 07:00 07:00 WBC 3.7 L RBC 4.58 Hgb 13.3 Hct 38.7 MCV 84.4 MCH 29.0 MCHC 34.4 RDW 12.8 Plt Count 197 MPV 9.0 Sodium 139 Potassium 4.0 Chloride 105 Carbon Dioxide 27 Anion Gap 7 L BUN 9 Creatinine 0.7 D Creat Clearance w eGFR > 60 Random Glucose 86 Calcium 8.8 Total Bilirubin 0.6 D AST 12 L ALT 20 Alkaline Phosphatase 113 Total Protein 6.8 Albumin 3.5 Urine Color Yellow Urine Appearance Clear Urine pH 5.0 Ur Specific [place] 1.020 Urine Protein Negative Urine Glucose (UA) Negative Urine Ketones Negative Urine Blood Negative Urine Nitrite Negative Urine Bilirubin Negative Urine Urobilinogen Negative Ur Leukocyte Esterase Negative LABS NOTED. RPR RESULT PENDING. PATIENT HAS HAD LOW WBC VALUES ON PREVIOUS ADMISSIONS. 10/31/17 11:33 Assessment: 10/31/17 11:32 WITHDRAWAL SYMPTOMS. Plan: CONTINUE DETOX. INCREASE DAILY PO FLUID INTAKE.
[2017-10-31] MEDS: CYCLOBENZAPRINE HCL 5 MG TABLET PO PRN ×2 (13:58→22:16)
--- NOTE | 2017-10-31 14:02 | CONSULT ---
[facility] Psychiatric Consult - Data Date of interview: 10/31/17 Admission source: [facility] Identifying data: Readmission to [facility] for this 21 y/o male seeking detox treatment,on ,for alcohol,heroin,xanax and cannabis dependence.Patient is single without children,domicilied,unemployed and supported by biological mother. Substance Abuse History: Discussed in this session.Mr Yoon admits to active use of the substances listed in the current [facility] report.See details as follows : Smoking history: Current every day smoker. Have you smoked in the past 12 months: Yes. Aproximately how many cigarettes per day: 60. Hx Chewing Tobacco Use: No. Initiated information on smoking cessation: Yes. 'Breaking Loose' booklet given: 10/30/17. - Substances Abused. Heroin. Route: Inhalation. Frequency: Daily. Amount used: 1 GRAM(25BAGS). Age of first use: 20. Date of Last Use: 10/30/17. ETOH. Route: Oral. Frequency: 1-2 times per week. Amount used: 1 PINT vodka. Age of first use: 20. Date of Last Use: 10/23/17. XANAX. Route: Oral. Frequency: 1-2 times per week. Amount used: 2MG. Age of first use: 19. Date of Last Use: 10/23/17. PERCOCET. Route: Oral. Frequency: Daily. Amount used: $11. Age of first use: 19. Date of Last Use: 10/29/17 Medical History: Patient reports good physical health. Psychiatric History: Patient denies. Physical/Sexual Abuse/Trauma History: No reported history of abuse. Additional Comment: Urine Drug Screen Results: THC-Marijuana, OPI-Opiates, BZO- Benzodiazepines, OXY-Oxycodone.Noted. Mental Status Exam - Mental Status Exam Alert and Oriented to: Time, Place, Person Cognitive Function: Good Patient Appearance: Disheveled Mood: Withdrawn, Anxious Affect: Mood Congruent Patient Behavior: Fatigued, Cooperative Speech Pattern: Clear, Appropriate Voice Loudness: Normal Thought Process: Intact, Goal Oriented Thought Disorder: Not Present Hallucinations: Denies Suicidal Ideation: Denies Homicidal Ideation: Denies Insight/Judgement: Poor Sleep: Poorly, Difficulty falling asleep Appetite: Good Muscle strength/Tone: Normal Gait/Station: Normal Psychiatric Findings - Problem List ([place] 1, 2,3) (1) Opioid dependence, uncomplicated Current Visit: Yes Status: Acute (2) Alcohol dependence with uncomplicated withdrawal Current Visit: Yes Status: Acute (3) Cannabis dependence, uncomplicated Current Visit: Yes Status: Acute (4) Sedative, hypnotic or anxiolytic dependence with withdrawal, uncomplicated Current Visit: Yes Status: Acute (5) Nicotine dependence Current Visit: Yes Status: Acute Qualifiers: Nicotine product type: cigarettes Substance use status: in withdrawal Qualified Code(s): F17.213 - Nicotine dependence, cigarettes, with withdrawal (6) Substance induced mood disorder Current Visit: Yes Status: Suspected (7) Insomnia Current Visit: Yes Status: Acute - Initial Treatment Plan Initial Treatment Plan: Previous records are reviewed.Psychoeducation.Detoxification.Sleep hygiene.Medication : ambien 10 mg po hs prn.Patient is made aware of potential for parasomnias.He verbalizes his agreement with this careplan.Observation.
[2017-10-31] MEDS: ACETAMINOPHEN 325 MG TABLET (FP) PO PRN (18:59)
[2017-10-31] MEDS ORDERED: ONDANSETRON *ODT* 4 MG TABLET SL ONE (20:30)
[2017-10-31] MEDS: ZOLPIDEM TARTRATE 10 MG TABLET (PARK CARE ONLY) PO PRN (22:17)
[2017-10-31] MEDS: RANITIDINE HCL 150 MG TABLET (FP) PO SCH (22:17)
[2017-10-31] MEDS: THIAMINE HCL 100 MG TABLET (FP) PO SCH (22:17)
[2017-11-01] MEDS: diazePAM 5 MG TABLET PO PRN ×3 (05:35→17:37)
[2017-11-01] MEDS: ACETAMINOPHEN 325 MG TABLET (FP) PO PRN ×2 (05:35→19:17)
[2017-11-01] MEDS ORDERED: METHADONE HCL 5 MG TABLET (FOR DETOX USE ONLY) PO SCH (10:00)
[2017-11-01] MEDS ORDERED: ONDANSETRON *ODT* 4 MG TABLET SL PRN (10:27)
[2017-11-01] MEDS: PRENATAL VITAMINS W/ FOLIC ACID TABLET (FP) PO SCH (10:29)
[2017-11-01] MEDS: RANITIDINE HCL 150 MG TABLET (FP) PO SCH ×2 (10:29→22:24)
[2017-11-01] MEDS: NICOTINE 21 MG/24 HOURS TOPICAL PATCH TD SCH (10:29)
[2017-11-01] MEDS: NAPROXEN 500 MG TABLET (FP) PO PRN ×2 (10:31→21:19)
[2017-11-01] MEDS: CYCLOBENZAPRINE HCL 10 MG TABLET (FP) PO PRN ×2 (12:08→20:04)
[2017-11-01] MEDS ORDERED: cloNIDine HCL 0.1 MG TABLET PO ONE (15:29)
--- NOTE | 2017-11-01 15:30 | PN ---
S COWS - Scale Resting Pulse: 0= [place] 80 or Below Sweatin= Chills/Flushing Restless Observation: 1= Difficult to Sit Still Pupil Size: 0= Normal to Room Light Bone or Joint Aches: 2= Severe Diffuse Aches Runny Nose/ Eye Tearin= None GI Upset > 30mins: 3= Vomiting/Diarrhea Tremor Observation of Outstretched Hands: 2= Slight Tremor Visible Yawning Observation: 1= 1-2x During Session Anxiety or Irritability: 4=Extreme Anxiety Goose Flesh Skin: 0=Smooth Skin COWS Score: 14 S Progress Note (SOAP) Subjective: Tremors, Vomiting, Body Aches, Tremors, Anxious, Sweating, Interrupted Sleep. Objective: PT. A & O X 3. NO ACUTE DISTRESS. 11/01/17 15:27 Vital Signs Temperature 97.1 F L 11/01/17 14:10 Pulse Rate 62 11/01/17 14:10 Respiratory Rate 18 11/01/17 14:10 Blood Pressure 156/98 11/01/17 14:10 O2 Sat by Pulse Oximetry (%) Laboratory Tests 10/30/17 10/31/17 10/31/17 23:51 07:00 07:00 WBC 3.7 L RBC 4.58 Hgb 13.3 Hct 38.7 MCV 84.4 MCH 29.0 MCHC 34.4 RDW 12.8 Plt Count 197 MPV 9.0 Sodium 139 Potassium 4.0 Chloride 105 Carbon Dioxide 27 Anion Gap 7 L BUN 9 Creatinine 0.7 D Creat Clearance w eGFR > 60 Random Glucose 86 Calcium 8.8 Total Bilirubin 0.6 D AST 12 L ALT 20 Alkaline Phosphatase 113 Total Protein 6.8 Albumin 3.5 Urine Color Yellow Urine Appearance Clear Urine pH 5.0 Ur Specific [place] 1.020 Urine Protein Negative Urine Glucose (UA) Negative Urine Ketones Negative Urine Blood Negative Urine Nitrite Negative Urine Bilirubin Negative Urine Urobilinogen Negative Ur Leukocyte Esterase Negative RPR Titer 10/31/17 07:00 WBC RBC Hgb Hct MCV MCH MCHC RDW Plt Count MPV Sodium Potassium Chloride Carbon Dioxide Anion Gap BUN Creatinine Creat Clearance w eGFR Random Glucose Calcium Total Bilirubin AST ALT Alkaline Phosphatase Total Protein Albumin Urine Color Urine Appearance Urine pH Ur Specific [place] Urine Protein Urine Glucose (UA) Urine Ketones Urine Blood Urine Nitrite Urine Bilirubin Urine Urobilinogen Ur Leukocyte Esterase RPR Titer Nonreactive LABS NOTED. Assessment: 11/01/17 15:27 WITHDRAWAL SYMPTOMS. Plan: CONTINUE DETOX. INCREASE DAILY PO FLUID INTAKE. PRN ZOFRAN SL FOR NAUSEA / VOMITING. CLONIDINE, 0.1 MG PO X 1 FOR ELEVATED BP AND FOR DETOX SYMPTOMS.
[2017-11-01] MEDS: THIAMINE HCL 100 MG TABLET (FP) PO SCH (22:24)
[2017-11-01] MEDS: ZOLPIDEM TARTRATE 10 MG TABLET (PARK CARE ONLY) PO PRN (22:24)
[2017-11-02] MEDS: diazePAM 5 MG TABLET PO PRN (05:08)
[2017-11-02] MEDS: ACETAMINOPHEN 325 MG TABLET (FP) PO PRN (05:08)
[2017-11-02 06:34] VITALS: TEMP 98.1
[2017-11-02 07:56] VITALS: BP 151/91; PULSE 54
--- NOTE | 2017-11-02 12:18 | DS ---
[facility] Detox Discharge Summary Admission Date: 10/30/17 Discharge Date: 11/02/17 - History Present History: Alcohol Dependence, Cannabis Dependence, Opioid Dependence, Sedative Dependence Additional Comments: PATIENT DOES NOT WISH TO STAY TO COMPLETE DETOX REGIMEN. RISKS OF LEAVING DETOX UNIT PRIOR TO COMPLETION OF DETOX REGIMEN EXPLAINED TO PATIENT. PATIENT ADVISED TO GO IMMEDIATELY TO NEAREST ER SHOULD ANY INTOLERABLE DETOX SYMPTOMS DEVELOP AT ANY TIME. PATIENT LEFT DETOX UNIT IN STABLE MEDICAL CONDITION. Pertinent Past History: Depression, Nicotine Dependence, Weight Loss, Insomnia. - Physical Exam Results Vital Signs: Vital Signs Temperature 98.1 F 11/02/17 06:34 Pulse Rate 54 L 11/02/17 07:55 Respiratory Rate 18 11/02/17 06:34 Blood Pressure 151/91 11/02/17 07:55 O2 Sat by Pulse Oximetry (%) Pertinent Admission Physical Exam Findings: WITHDRAWAL SYMPTOMS. Laboratory Tests 10/30/17 10/31/17 10/31/17 23:51 07:00 07:00 WBC 3.7 L RBC 4.58 Hgb 13.3 Hct 38.7 MCV 84.4 MCH 29.0 MCHC 34.4 RDW 12.8 Plt Count 197 MPV 9.0 Sodium 139 Potassium 4.0 Chloride 105 Carbon Dioxide 27 Anion Gap 7 L BUN 9 Creatinine 0.7 D Creat Clearance w eGFR > 60 Random Glucose 86 Calcium 8.8 Total Bilirubin 0.6 D AST 12 L ALT 20 Alkaline Phosphatase 113 Total Protein 6.8 Albumin 3.5 Urine Color Yellow Urine Appearance Clear Urine pH 5.0 Ur Specific [place] 1.020 Urine Protein Negative Urine Glucose (UA) Negative Urine Ketones Negative Urine Blood Negative Urine Nitrite Negative Urine Bilirubin Negative Urine Urobilinogen Negative Ur Leukocyte Esterase Negative RPR Titer 10/31/17 07:00 WBC RBC Hgb Hct MCV MCH MCHC RDW Plt Count MPV Sodium Potassium Chloride Carbon Dioxide Anion Gap BUN Creatinine Creat Clearance w eGFR Random Glucose Calcium Total Bilirubin AST ALT Alkaline Phosphatase Total Protein Albumin Urine Color Urine Appearance Urine pH Ur Specific [place] Urine Protein Urine Glucose (UA) Urine Ketones Urine Blood Urine Nitrite Urine Bilirubin Urine Urobilinogen Ur Leukocyte Esterase RPR Titer Nonreactive LABS NOTED. - Treatment Hospital Course: Detoxed Safely - Medication Discharge Medications: Ambulatory Orders NK [No Known Home Medication] 07/11/17 - Diagnosis (1) Nicotine dependence Current Visit: Yes Status: Acute Qualifiers: Nicotine product type: cigarettes Substance use status: in withdrawal Qualified Code(s): F17.213 - Nicotine dependence, cigarettes, with withdrawal (2) Opioid dependence, uncomplicated Current Visit: Yes Status: Acute (3) Weight loss Current Visit: Yes Status: Acute (4) Depression (emotion) Current Visit: Yes Status: Suspected Qualifiers: Depression Type: dysthymia Qualified Code(s): F34.1 - Dysthymic disorder (5) Cannabis dependence, uncomplicated Current Visit: Yes Status: Acute (6) Sedative, hypnotic or anxiolytic dependence with withdrawal, uncomplicated Current Visit: Yes Status: Acute (7) Insomnia Current Visit: Yes Status: Acute Qualifiers: Insomnia type: unspecified Qualified Code(s): G47.00 - Insomnia, unspecified (8) Substance induced mood disorder Current Visit: Yes Status: Suspected (9) Alcohol dependence with uncomplicated withdrawal Current Visit: Yes Status: Acute - AMA Did Patient Leave Against Medical Advice: Yes (PATIENT DID NOT WISH TO STAY TO COMPLETE DETOX REGIMEN.)
[2017-11-03] MEDS ORDERED: METHADONE HCL 10 MG TABLET (FOR DETOX USE ONLY) PO SCH (10:00)
[2017-11-04] MEDS ORDERED: METHADONE HCL 5 MG TABLET (FOR DETOX USE ONLY) PO SCH (06:00)
== END 2017-11-02 09:14 | disposition left against medical advice (07) | DRG 770 ==
LOC: YASAS 17:25 → Y3N 21:58
PROVIDERS: ADMIT Internal Medicine; ATTEND Internal Medicine
PROC: HZ2ZZZZ Detoxification Services for Substance Abuse Treatment (ICD-10-PCS; principal; 2017-10-30)
DX: F11.23 Opioid dependence with withdrawal (principal); F13.230 Sedative, hypnotic or anxiolytic dependence with withdrawal, uncomplicated; F10.230 Alcohol dependence with withdrawal, uncomplicated; F12.20 Cannabis dependence, uncomplicated; F17.213 Nicotine dependence, cigarettes, with withdrawal; F34.1 Dysthymic disorder; F19.24 Other psychoactive substance dependence with psychoactive substance-induced mood disorder; G47.00 Insomnia, unspecified; Z87.898 Personal history of other specified conditions
CPT/HCPCS: 36415; 80053; 81003; 85027; 86593; 93005; 93010

== ENCOUNTER 2018-04-23 15:11 | Inpatient (IN) | payer OTHER ==
[2018-04-23 15:42] VITALS: BMI 22.4
--- NOTE | 2018-04-23 17:00 | HP ---
COWS - Scale Resting Pulse: 0= [place] 80 or Below Sweatin= Chills/Flushing Restless Observation: 1= Difficult to Sit Still Pupil Size: 1= Pupils >than Normal Bone or Joint Aches: 1= Mild Discomfort Runny Nose/ Eye Tearin= Runny Nose/Eyes GI Upset > 30mins: 2= Nausea/Diarrhea Tremor Observation: 2= Slight Tremor Visible Yawning Observation: 1= 1-2x During Session Anxiety or Irritability: 1=Feels Anxious/Irritable Goose Flesh Skin: 0=Smooth Skin COWS Score: 12 Admission ROS S - HPI Chief Complaint: "I got so depressed yesterday and felt panic, I went to the ED at [facility] , and I need help. My dad a week ago and I feel depressed." Allergies/Adverse Reactions: Allergies Allergy/AdvReac Type Severity Reaction Status Date / Time No Known Allergies Allergy Verified 04/23/18 15:48 History of Present Illness: 22 yo male with nicotine, and heroin dependence, with occasional ETOH and THC use is here seeking detox. Last detox [facility] October 2017. PMHX: depression and anxiety. Denies suicidal / homicidal ideation or hx of past suicide attempts. Denies hx of seizures or blackouts. Denies no significant period of sobriety. Exam Limitations: No Limitations - Ebola screening Have you traveled outside of the country in the last 21 days: No Have you had contact with anyone from an Ebola affected area: No Have you been sick,other than usual withdrawal symptoms: No Do you have a fever: No - Review of Systems Constitutional: No Symptoms Reported, Chills, Diaphoresis, Loss of Appetite, Changes in sleep, Unintentional Wgt. Loss EENT: reports: Other (runny nose) Cardiac: reports: Palpitations GI: reports: Nausea, Poor Appetite, Poor Fluid Intake : reports: No Symptoms Reported Musculoskeletal: reports: Back Pain, Joint Pain, Other (muscle spasms generalized) Integumentary: reports: No Symptoms Reported Neuro: reports: No Symptoms reported Endocrine: reports: Increased Thirst Hematology: reports: No Symptoms Reported Psychiatric: reports: Orientated x3, Depressed Other Systems: Reviewed and Negative Patient History - Patient Medical History Hx Anemia: No Hx Asthma: No Hx Chronic Obstructive Pulmonary Disease (COPD): No Hx Cancer: No Hx Cardiac Disorders: No Hx Congestive Heart Failure: No Hx Hypertension: No Hx Hypercholesterolemia: No Hx Pacemaker: No HX Cerebrovascular Accident: No Hx Seizures: No Hx Dementia: No Hx Diabetes: No Hx Gastrointestinal Disorders: No Hx Liver Disease: No Hx Genitourinary Disorders: No Hx Sexually Transmitted Disorders: No Hx Renal Disease (ESRD): No Hx Thyroid Disease: No Hx Human Immunodeficiency Virus (HIV): No (negative) Hx Hepatitis C: No Hx Depression: Yes Hx Suicide Attempt: No Hx Bipolar Disorder: No Hx Schizophrenia: No - Patient Surgical History Past Surgical History: No Hx Neurologic Surgery: No Hx Cataract Extraction: No Hx Cardiac Surgery: No Hx Lung Surgery: No Hx Breast Surgery: No Hx Breast Biopsy: No Hx Abdominal Surgery: No Hx Appendectomy: No Hx Cholecystectomy: No Hx Genitourinary Surgery: No Hx Section: No Hx Orthopedic Surgery: No Anesthesia Reaction: No - PPD History Previous Implant?: Yes Documented Results: Negative w/proof Implanted On Prior [facility] Admission?: Yes Date: 08/15/17 Results: 0MM PPD to be Administered?: No - Smoking Cessation Smoking history: Current every day smoker Have you smoked in the past 12 months: Yes Aproximately how many cigarettes per day: 60 Hx Chewing Tobacco Use: No Initiated information on smoking cessation: Yes 'Breaking Loose' booklet given: 04/23/18 - Substance & Tx. History Hx Alcohol Use: Yes Hx Substance Use: Yes Substance Use Type: Heroin Hx Substance Use Treatment: Yes ([facility]) - Substances Abused Heroin Route: Inhalation Frequency: Daily Amount used: 1 GRAM Age of first use: 21 Date of Last Use: 04/22/18 Family Disease History - Family Disease History Family Disease History: Heart Disease: Father ([place], ), Other: Father Admission Physical Exam S - Vital Signs Vital Signs: Vital Signs - 24 hr 04/23/18 15:38 Temperature 98.4 F Pulse Rate 56 L Respiratory 16 Rate Blood Pressure 122/78 - Physical General Appearance: Yes: Appropriately Dressed, Mild Distress, Thin, Anxious HEENTM: Yes: EOMI, Hearing grossly Normal, Normal ENT Inspection, Normocephalic , Normal Voice, TU, Pharynx Normal, Tm's normal, Other (braces present) Respiratory: Yes: Chest Non-Tender, Lungs Clear, Normal Breath Sounds, No Respiratory Distress, No Accessory Muscle Use Neck: Yes: Within Normal Limits Breast: Yes: Breast Exam Deferred Cardiology: Yes: Regular Rhythm, Regular Rate Abdominal: Yes: Normal Bowel Sounds, Non Tender, Flat, Soft Genitourinary: Yes: Within Normal Limits Back: Yes: Normal Inspection Musculoskeletal: Yes: full range of Motion, Gait Steady, Pelvis Stable, Back pain Extremities: Yes: Normal Capillary Refill, Normal Inspection, Normal Range of Motion, Non-Tender Neurological: Yes: winemaker II-XII NML intact, Fully Oriented, Alert, Motor Strength 5/5, Normal Response, Depressed Affect Integumentary: Yes: Normal Color, Warm, Moist Lymphatic: Yes: Within Normal Limits - Diagnostic (1) Opioid dependence with withdrawal Current Visit: Yes Status: Acute (2) Bereavement due to life event Current Visit: Yes Status: Acute (3) Cannabis dependence, uncomplicated Current Visit: Yes Status: Acute (4) Cocaine dependence, uncomplicated Current Visit: Yes Status: Acute (5) Nicotine dependence Current Visit: Yes Status: Acute Qualifiers: Nicotine product type: cigarettes Substance use status: in withdrawal Qualified Code(s): F17.213 - Nicotine dependence, cigarettes, with withdrawal (6) Weight loss Current Visit: Yes Status: Acute (7) Depression (emotion) Current Visit: Yes Status: Suspected Qualifiers: Depression Type: dysthymia Qualified Code(s): F34.1 - Dysthymic disorder (8) Back pain Current Visit: Yes Status: Acute Qualifiers: Back pain location: low back pain Chronicity: acute Back pain laterality : midline Sciatica presence: without sciatica Qualified Code(s): M54.5 - Low back pain Cleared for Admission [facility] - Detox or Rehab [facility] Level of Care: Medically Managed Detox Regimen/Protocol: Methadone [facility] Breath Alcohol Content Breath Alcohol Content: 0 Urine Drug Screen - Results Drug Screen Negative: No Urine Drug Screen Results: THC-Marijuana, PADMINI-Cocaine, OPI-Opiates
[2018-04-23] MEDS ORDERED: MAG HYDROX/AL HYDROX/SIMETH 30 ML UNIT-DOSE CUP PO PRN (17:04)
[2018-04-23] MEDS ORDERED: guaiFENesin/D-METHORPHAN HB 10 ML UNIT-DOSE CUPS PO PRN (17:04)
[2018-04-23] MEDS ORDERED: LOPERAMIDE HCL 2 MG CAPSULE PO PRN (17:04)
[2018-04-23] MEDS ORDERED: MAGNESIUM CITRATE 300 ML BOTTLE PO PRN (17:04)
[2018-04-23] MEDS ORDERED: hydrOXYzine PAMOATE 50 MG CAPSULE (FP) PO PRN (17:04)
[2018-04-23] MEDS ORDERED: MENTHOL/PHENOL 1 EACH UD MM PRN (17:04)
[2018-04-23] MEDS ORDERED: IBUPROFEN 400 MG TABLET (FP) PO PRN (17:04)
[2018-04-23] MEDS ORDERED: P-EPHED 60MG/TRIPROLIDI 2.5MG TABLET PO PRN (17:04)
[2018-04-23] MEDS ORDERED: MAGNESIUM HYDROX 2400MG/30ML ORAL SUSPENSION 30 ML CUP PO PRN (17:04)
[2018-04-23] MEDS ORDERED: NICOTINE POLACRILEX 4 MG GUM BC PRN (17:04)
[2018-04-23] MEDS ORDERED: METHADONE HCL 10 MG TABLET (FOR DETOX USE ONLY) PO ONE ×2 (17:45→23:00)
[2018-04-23] MEDS: diazePAM 5 MG TABLET PO PRN (18:49)
[2018-04-23] MEDS: LIDOCAINE 5% TOPICAL PATCH TP SCH (18:52)
[2018-04-23] MEDS ORDERED: MELATONIN 5 MG TABLETS PO PRN (22:00)
[2018-04-23] MEDS: THIAMINE HCL 100 MG TABLET (FP) PO SCH (22:22)
[2018-04-23] MEDS: CYCLOBENZAPRINE HCL 5 MG TABLET PO SCH (22:24)
[2018-04-23] MEDS: LIDOCAINE PATCH REMOVAL MC SCH (22:33)
[2018-04-24] MEDS: CYCLOBENZAPRINE HCL 5 MG TABLET PO SCH ×3 (06:10→22:24)
[2018-04-24] MEDS: diazePAM 5 MG TABLET PO PRN ×4 (06:10→22:24)
--- NOTE | 2018-04-24 09:38 | EKG ---
Test Reason : Blood Pressure : / mmHG Vent. Rate : 047 BPM Atrial Rate : 047 BPM P-R Int : 146 ms QRS Dur : 092 ms QT Int : 434 ms P-R-T Axes : 045 070 063 degrees QTc Int : 384 ms SINUS BRADYCARDIA OTHERWISE NORMAL ECG WHEN COMPARED WITH ECG OF 30-OCT-2017 23:50, NO SIGNIFICANT CHANGE WAS FOUND Confirmed by SHARRI JOE MD ([id number]) on 04/24/2018 9:38:11 AM Referred By: Confirmed By:SHARRI JOE MD
[2018-04-24 09:57] LABS: CHLORIDE 102 mmol/L (98-107); POTASSIUM 3.8 mmol/L (3.5-5.1); SODIUM 139 mmol/L (136-145)
[2018-04-24] MEDS ORDERED: METHADONE HCL 10 MG TABLET (FOR DETOX USE ONLY) PO ONE (10:00)
[2018-04-24 10:05] LABS: HEMATOCRIT 38.8 % (35.4-49); HEMOGLOBIN 13.7 GM/dL (11.7-16.9); MCH 29.9 pg (25.7-33.7); MCHC 35.4 g/dl (32.0-35.9); MEAN CELL VOLUME 84.3 fl (80-96); MEAN PLT VOLUME 9.1 fl (7.5-11.1); PLATELET COUNT 199 K/MM3 (134-434); RDW 12.3 % (11.9-15.9); WHITE BLOOD COUNT 2.7 K/mm3 (4.0-10.0)
[2018-04-24] MEDS: PRENATAL VITAMINS W/ FOLIC ACID TABLET (FP) PO SCH (10:15)
[2018-04-24] MEDS: NICOTINE 21 MG/24 HOURS TOPICAL PATCH TD SCH (10:15)
[2018-04-24] MEDS: LIDOCAINE 5% TOPICAL PATCH TP SCH (10:16)
[2018-04-24 11:00] LABS: ALBUMIN 3.6 g/dl (3.4-5.0); ALK PHOS 107 U/L (45-117); ANION GAP 8 (8-16); BILIRUBIN,TOTAL 1.1 mg/dL (0.2-1.0); BLOOD UREA NITROGEN 8 mg/dL (7-18); CALCIUM 9.1 mg/dL (8.5-10.1); CO2 29 mmol/L (21-32); CREATININE 0.9 mg/dL (0.7-1.3); GLUCOSE,RANDOM 91 mg/dL (74-106); SGOT/AST 12 U/L (15-37); SGPT/ALT 22 U/L (12-78); TOT PROT 7.2 g/dl (6.4-8.2)
--- NOTE | 2018-04-24 11:34 | PN ---
S COWS - Scale Resting Pulse: 0= [place] 80 or Below Sweatin= Chills/Flushing Restless Observation: 1= Difficult to Sit Still Pupil Size: 0= Normal to Room Light Bone or Joint Aches: 2= Severe Diffuse Aches Runny Nose/ Eye Tearin= Nasal Congestion GI Upset > 30mins: 0= None Tremor Observation of Outstretched Hands: 2= Slight Tremor Visible Yawning Observation: 2= >3x During Session Anxiety or Irritability: 2=Irritable/Anxious Goose Flesh Skin: 3=Piloerection COWS Score: 14 BHS Progress Note (SOAP) Subjective: Sweating, Body Aches, Tremors, Anxious. Objective: PATIENT A & O X 3. NO ACUTE DISTRESS. PATIENT DENIES ANY KNOWN HISTORY OF BRADYCARDIA. 04/24/18 11:30 Vital Signs Temperature 96.8 F L 04/24/18 09:27 Pulse Rate 52 L 04/24/18 09:27 Respiratory Rate 20 04/24/18 09:27 Blood Pressure 96/65 04/24/18 09:27 O2 Sat by Pulse Oximetry (%) Laboratory Tests 04/24/18 04/24/18 06:40 06:40 WBC 2.7 L RBC 4.60 Hgb 13.7 Hct 38.8 MCV 84.3 MCH 29.9 MCHC 35.4 RDW 12.3 Plt Count 199 MPV 9.1 Sodium 139 Potassium 3.8 Chloride 102 Carbon Dioxide 29 Anion Gap 8 BUN 8 Creatinine 0.9 D Creat Clearance w eGFR > 60 Random Glucose 91 Calcium 9.1 Total Bilirubin 1.1 H D AST 12 L ALT 22 Alkaline Phosphatase 107 Total Protein 7.2 Albumin 3.6 LABS NOTED. UA, RPR, HIV AB RESULTS PENDING. PATIENT HAS HAD LOW WBC LEVELS ON PREVIOUS ADMISSIONS. 04/24/18 11:32 Assessment: 04/24/18 11:30 WITHDRAWAL SYMPTOMS. Plan: CONTINUE DETOX. INCREASE DAILY PO FLUID INTAKE. ENCOURAGE AMBULATION.
[2018-04-24 14:24] LABS: URINE APPEARANCE CLEAR; URINE BILIRUBIN NEGATIVE (<2.0 mg/dL); URINE COLOR YELLOW; URINE GLUCOSE (UA) NEGATIVE (NEGATIVE); URINE KETONE NEGATIVE (NEGATIVE); URINE LEUK ESTERASE NEGATIVE (NEGATIVE); URINE NITRITE NEGATIVE (NEGATIVE); URINE PROTEIN NEGATIVE (NEGATIVE)
--- NOTE | 2018-04-24 15:57 | CONSULT ---
[facility] Psychiatric Consult - Data Date of interview: 04/24/18 Admission source: [facility] Identifying data: Another admission to [facility] for this 22 y/o male seeking detox treatment,on ,for heroin,cocaine and cannabis dependence.Patient is single without children,domiciled,unemployed and dependent on biological mother for financial support. Substance Abuse History: Confirmed by the patient in this interview.Details in current [facility] report as follows : Smoking history: Current every day smoker. Have you smoked in the past 12 months: Yes. Aproximately how many cigarettes per day: 60. Hx Chewing Tobacco Use: No. Initiated information on smoking cessation: Yes. 'Breaking Loose' booklet given: 04/23/18. - Substance & Tx. History. Hx Alcohol Use: Yes. Hx Substance Use: Yes. Substance Use Type: Heroin. Hx Substance Use Treatment: Yes ([facility]). - Substances Abused. Heroin. Route: Inhalation. Frequency: Daily. Amount used: 1 GRAM. Age of first use: 21. Date of Last Use: 04/22/18 Medical History: Patient endorses good general health. Psychiatric History: No history of psychiatric illness or hospitalizations.Patient indicates that he started using substances (alcohol, xanax,opiates) around age 17-18.Toxicology screen is positive for marihuana and cocaine.Patient denies prior exposure to psychotropic medications with the exception of benzodiazepines/opiates (self-medicated).No reported history of suicde attempts. Physical/Sexual Abuse/Trauma History: Currently dealing with two recent heavy losses : deaths of his 32 y/o brother eight months ago + biological father a week ago.Patient is going through a normal bereavement process. Additional Comment: Urine Drug Screen Results: THC-Marijuana, PADMINI-Cocaine, OPI- Opiates.Noted. Mental Status Exam - Mental Status Exam Alert and Oriented to: Time, Place, Person Cognitive Function: Good Patient Appearance: Well Groomed Mood: Sad, Anxious, Hopeful Affect: Mood Congruent, Constricted Patient Behavior: Fatigued, Appropriate, Cooperative Speech Pattern: Clear, Appropriate Voice Loudness: Normal Thought Process: Intact, Goal Oriented Thought Disorder: Not Present Hallucinations: Denies Suicidal Ideation: Denies Homicidal Ideation: Denies Insight/Judgement: Fair Sleep: Poorly, Difficulty falling asleep Appetite: Fair Muscle strength/Tone: Normal Gait/Station: Normal Psychiatric Findings - Problem List ([place] 1, 2,3) (1) Bereavement Current Visit: Yes Status: Acute (2) Opioid dependence with withdrawal Current Visit: Yes Status: Acute (3) Cannabis dependence, uncomplicated Current Visit: Yes Status: Acute (4) Cocaine dependence, uncomplicated Current Visit: Yes Status: Acute (5) Nicotine dependence Current Visit: Yes Status: Acute Qualifiers: Nicotine product type: cigarettes Substance use status: in withdrawal Qualified Code(s): F17.213 - Nicotine dependence, cigarettes, with withdrawal (6) Substance induced mood disorder Current Visit: Yes Status: Acute (7) Insomnia Current Visit: Yes Status: Acute Qualifiers: Insomnia type: unspecified Qualified Code(s): G47.00 - Insomnia, unspecified - Initial Treatment Plan Initial Treatment Plan: Psychoeducation and support.Empathy.Sleep hygiene.Detoxification in progress.Ambien 10 mg po hs prn.Patient is made aware of risk of parasomnias.Mr Yoon agrees to this careplan.Observation.
[2018-04-24] MEDS: THIAMINE HCL 100 MG TABLET (FP) PO SCH (22:24)
[2018-04-24] MEDS: LIDOCAINE PATCH REMOVAL MC SCH (22:25)
[2018-04-24] MEDS: ZOLPIDEM TARTRATE 10 MG TABLET (PARK CARE ONLY) PO PRN (22:25)
[2018-04-25] MEDS: CYCLOBENZAPRINE HCL 5 MG TABLET PO SCH ×3 (06:46→22:21)
[2018-04-25] MEDS ORDERED: METHADONE HCL 5 MG TABLET (FOR DETOX USE ONLY) PO ONE (10:00)
[2018-04-25] MEDS: LIDOCAINE 5% TOPICAL PATCH TP SCH (10:12)
[2018-04-25] MEDS: PRENATAL VITAMINS W/ FOLIC ACID TABLET (FP) PO SCH (10:12)
[2018-04-25] MEDS: diazePAM 5 MG TABLET PO PRN ×2 (10:12→22:21)
[2018-04-25] MEDS: NICOTINE 21 MG/24 HOURS TOPICAL PATCH TD SCH (10:12)
[2018-04-25] MEDS: ACETAMINOPHEN 325 MG TABLET (FP) PO PRN (10:14)
--- NOTE | 2018-04-25 11:19 | EKG ---
Test Reason : Blood Pressure : / mmHG Vent. Rate : 049 BPM Atrial Rate : 049 BPM P-R Int : 138 ms QRS Dur : 100 ms QT Int : 434 ms P-R-T Axes : 053 076 062 degrees QTc Int : 392 ms SINUS BRADYCARDIA WITH MARKED SINUS ARRHYTHMIA OTHERWISE NORMAL ECG WHEN COMPARED WITH ECG OF 23-APR-2018 18:29, NO SIGNIFICANT CHANGE WAS FOUND Confirmed by NADINE POSEY MD ([id number]) on 04/25/2018 11:19:12 AM Referred By: Confirmed By:NADINE POSEY MD
--- NOTE | 2018-04-25 12:01 | PN ---
BHS COWS - Scale Resting Pulse: 0= MO 80 or Below Sweatin= Chills/Flushing Restless Observation: 1= Difficult to Sit Still Pupil Size: 0= Normal to Room Light Bone or Joint Aches: 0= None Runny Nose/ Eye Tearin= Nasal Congestion GI Upset > 30mins: 0= None Tremor Observation of Outstretched Hands: 2= Slight Tremor Visible Yawning Observation: 2= >3x During Session Anxiety or Irritability: 2=Irritable/Anxious Goose Flesh Skin: 3=Piloerection COWS Score: 12 BHS Progress Note (SOAP) Subjective: Tremors, Sweating, H/A, Anxious, Interrupted Sleep. Objective: PATIENT A & O X 3, OBSERVED AMBULATING ON UNIT. NO ACUTE DISTRESS. 04/25/18 11:59 Vital Signs Temperature 97.1 F L 04/25/18 09:21 Pulse Rate 54 L 04/25/18 09:21 Respiratory Rate 18 04/25/18 09:21 Blood Pressure 111/79 04/25/18 09:21 O2 Sat by Pulse Oximetry (%) Laboratory Tests 04/24/18 04/24/18 04/24/18 06:40 06:40 06:40 WBC 2.7 L RBC 4.60 Hgb 13.7 Hct 38.8 MCV 84.3 MCH 29.9 MCHC 35.4 RDW 12.3 Plt Count 199 MPV 9.1 Sodium 139 Potassium 3.8 Chloride 102 Carbon Dioxide 29 Anion Gap 8 BUN 8 Creatinine 0.9 D Creat Clearance w eGFR > 60 Random Glucose 91 Calcium 9.1 Total Bilirubin 1.1 H D AST 12 L ALT 22 Alkaline Phosphatase 107 Total Protein 7.2 Albumin 3.6 Urine Color Urine Appearance Urine pH Ur Specific [place] Urine Protein Urine Glucose (UA) Urine Ketones Urine Blood Urine Nitrite Urine Bilirubin Urine Urobilinogen Ur Leukocyte Esterase RPR Titer HIV 1&2 Antibody Screen Negative HIV P24 Antigen Negative 04/24/18 04/24/18 06:40 12:00 WBC RBC Hgb Hct MCV MCH MCHC RDW Plt Count MPV Sodium Potassium Chloride Carbon Dioxide Anion Gap BUN Creatinine Creat Clearance w eGFR Random Glucose Calcium Total Bilirubin AST ALT Alkaline Phosphatase Total Protein Albumin Urine Color Yellow Urine Appearance Clear Urine pH 6.0 Ur Specific [place] 1.019 Urine Protein Negative Urine Glucose (UA) Negative Urine Ketones Negative Urine Blood Negative Urine Nitrite Negative Urine Bilirubin Negative Urine Urobilinogen 2.0 Ur Leukocyte Esterase Negative RPR Titer Nonreactive HIV 1&2 Antibody Screen HIV P24 Antigen LABS NOTED. Assessment: 04/25/18 11:59 WITHDRAWAL SYMPTOMS. Plan: CONTINUE DETOX. ENCOURAGE AMBULATION. INCREASE DAILY PO FLUID INTAKE.
[2018-04-25] MEDS: THIAMINE HCL 100 MG TABLET (FP) PO SCH (22:21)
[2018-04-25] MEDS: ZOLPIDEM TARTRATE 10 MG TABLET (PARK CARE ONLY) PO PRN (22:21)
[2018-04-25] MEDS: LIDOCAINE PATCH REMOVAL MC SCH (22:25)
[2018-04-26] MEDS: diazePAM 5 MG TABLET PO PRN ×2 (05:38→10:05)
[2018-04-26] MEDS: CYCLOBENZAPRINE HCL 5 MG TABLET PO SCH ×3 (05:38→22:14)
[2018-04-26] MEDS: ACETAMINOPHEN 325 MG TABLET (FP) PO PRN (05:39)
[2018-04-26] MEDS ORDERED: METHADONE HCL 5 MG TABLET (FOR DETOX USE ONLY) PO ONE (10:00)
[2018-04-26] MEDS: PRENATAL VITAMINS W/ FOLIC ACID TABLET (FP) PO SCH (10:05)
[2018-04-26] MEDS: LIDOCAINE 5% TOPICAL PATCH TP SCH (10:06)
[2018-04-26] MEDS: NICOTINE 21 MG/24 HOURS TOPICAL PATCH TD SCH (10:06)
--- NOTE | 2018-04-26 15:47 | PN ---
BHS Progress Note (SOAP) Subjective: Interrupted Sleep, Fatigue, Anxious. Objective: PATIENT A & O X 2 (UNCERTAIN ABOUT CURRENT DAY / DATE). PATIENT OBSERVED AMBULATING ON UNIT. NO ACUTE DISTRESS. 04/26/18 15:44 Vital Signs Temperature 97.8 F 04/26/18 15:28 Pulse Rate 110 H 04/26/18 15:28 Respiratory Rate 18 04/26/18 15:28 Blood Pressure 123/86 04/26/18 15:28 O2 Sat by Pulse Oximetry (%) Laboratory Tests 04/24/18 04/24/18 04/24/18 06:40 06:40 06:40 WBC 2.7 L RBC 4.60 Hgb 13.7 Hct 38.8 MCV 84.3 MCH 29.9 MCHC 35.4 RDW 12.3 Plt Count 199 MPV 9.1 Sodium 139 Potassium 3.8 Chloride 102 Carbon Dioxide 29 Anion Gap 8 BUN 8 Creatinine 0.9 D Creat Clearance w eGFR > 60 Random Glucose 91 Calcium 9.1 Total Bilirubin 1.1 H D AST 12 L ALT 22 Alkaline Phosphatase 107 Total Protein 7.2 Albumin 3.6 Urine Color Urine Appearance Urine pH Ur Specific [place] Urine Protein Urine Glucose (UA) Urine Ketones Urine Blood Urine Nitrite Urine Bilirubin Urine Urobilinogen Ur Leukocyte Esterase RPR Titer HIV 1&2 Antibody Screen Negative HIV P24 Antigen Negative 04/24/18 04/24/18 06:40 12:00 WBC RBC Hgb Hct MCV MCH MCHC RDW Plt Count MPV Sodium Potassium Chloride Carbon Dioxide Anion Gap BUN Creatinine Creat Clearance w eGFR Random Glucose Calcium Total Bilirubin AST ALT Alkaline Phosphatase Total Protein Albumin Urine Color Yellow Urine Appearance Clear Urine pH 6.0 Ur Specific [place] 1.019 Urine Protein Negative Urine Glucose (UA) Negative Urine Ketones Negative Urine Blood Negative Urine Nitrite Negative Urine Bilirubin Negative Urine Urobilinogen 2.0 Ur Leukocyte Esterase Negative RPR Titer Nonreactive HIV 1&2 Antibody Screen HIV P24 Antigen LABS NOTED. Assessment: 04/26/18 15:44 WITHDRAWAL SYMPTOMS. Plan: CONTINUE DETOX. INCREASE DAILY PO FLUID INTAKE.
[2018-04-26] MEDS: THIAMINE HCL 100 MG TABLET (FP) PO SCH (22:13)
[2018-04-26] MEDS: LIDOCAINE PATCH REMOVAL MC SCH (22:13)
[2018-04-26] MEDS: ZOLPIDEM TARTRATE 10 MG TABLET (PARK CARE ONLY) PO PRN (22:13)
[2018-04-27] MEDS: CYCLOBENZAPRINE HCL 5 MG TABLET PO SCH (05:16)
[2018-04-27 09:21] VITALS: BP 111/67; PULSE 82; TEMP 96.4
[2018-04-27] MEDS ORDERED: METHADONE HCL 10 MG TABLET (FOR DETOX USE ONLY) PO ONE (10:00)
[2018-04-27] MEDS: PRENATAL VITAMINS W/ FOLIC ACID TABLET (FP) PO SCH (10:05)
[2018-04-27] MEDS: NICOTINE 21 MG/24 HOURS TOPICAL PATCH TD SCH (10:06)
[2018-04-27] MEDS: LIDOCAINE 5% TOPICAL PATCH TP SCH (10:06)
--- NOTE | 2018-04-27 14:28 | PN ---
BHS Progress Note (SOAP) Subjective: Sweating, Anxious. Objective: PATIENT A & O X 3, OBSERVED AMBULATING ON UNIT. NO ACUTE DISTRESS. 04/27/18 14:27 Vital Signs Temperature 96.4 F L 04/27/18 09:20 Pulse Rate 82 04/27/18 09:20 Respiratory Rate 18 04/27/18 09:20 Blood Pressure 111/67 04/27/18 09:20 O2 Sat by Pulse Oximetry (%) Laboratory Tests 04/24/18 04/24/18 04/24/18 06:40 06:40 06:40 WBC 2.7 L RBC 4.60 Hgb 13.7 Hct 38.8 MCV 84.3 MCH 29.9 MCHC 35.4 RDW 12.3 Plt Count 199 MPV 9.1 Sodium 139 Potassium 3.8 Chloride 102 Carbon Dioxide 29 Anion Gap 8 BUN 8 Creatinine 0.9 D Creat Clearance w eGFR > 60 Random Glucose 91 Calcium 9.1 Total Bilirubin 1.1 H D AST 12 L ALT 22 Alkaline Phosphatase 107 Total Protein 7.2 Albumin 3.6 Urine Color Urine Appearance Urine pH Ur Specific [place] Urine Protein Urine Glucose (UA) Urine Ketones Urine Blood Urine Nitrite Urine Bilirubin Urine Urobilinogen Ur Leukocyte Esterase RPR Titer HIV 1&2 Antibody Screen Negative HIV P24 Antigen Negative 04/24/18 04/24/18 06:40 12:00 WBC RBC Hgb Hct MCV MCH MCHC RDW Plt Count MPV Sodium Potassium Chloride Carbon Dioxide Anion Gap BUN Creatinine Creat Clearance w eGFR Random Glucose Calcium Total Bilirubin AST ALT Alkaline Phosphatase Total Protein Albumin Urine Color Yellow Urine Appearance Clear Urine pH 6.0 Ur Specific [place] 1.019 Urine Protein Negative Urine Glucose (UA) Negative Urine Ketones Negative Urine Blood Negative Urine Nitrite Negative Urine Bilirubin Negative Urine Urobilinogen 2.0 Ur Leukocyte Esterase Negative RPR Titer Nonreactive HIV 1&2 Antibody Screen HIV P24 Antigen LABS NOTED. Assessment: 04/27/18 14:27 WITHDRAWAL SYMPTOMS. Plan: CONTINUE DETOX.
--- NOTE | 2018-04-27 14:31 | DS ---
[facility] Detox Discharge Summary Admission Date: 04/23/18 Discharge Date: 04/27/18 - History Present History: Cannabis Dependence, Cocaine Dependence, Opioid Dependence Additional Comments: PATIENT DOES NOT WISH TO STAY TO COMPLETE DETOX REGIMEN. RISKS OF LEAVING DETOX UNIT AGAINST MEDICAL ADVICE AND PRIOR TO COMPLETION OF DETOX REGIMEN EXPLAINED TO PATIENT. PATIENT ADVISED TO GO IMMEDIATELY TO NEAREST ER SHOULD ANY INTOLERABLE DETOX SYMPTOMS DEVELOP AT ANY TIME. PATIENT LEFT DETOX UNIT IN STABLE MEDICAL CONDITION. Pertinent Past History: Depression, Back Pain, Bereavement Due to life Event, Insomnia, Weight Loss, Nicotine Dependence. - Physical Exam Results Vital Signs: Vital Signs Temperature 96.4 F L 04/27/18 09:20 Pulse Rate 82 04/27/18 09:20 Respiratory Rate 18 04/27/18 09:20 Blood Pressure 111/67 04/27/18 09:20 O2 Sat by Pulse Oximetry (%) Pertinent Admission Physical Exam Findings: WITHDRAWAL SYMPTOMS. Laboratory Tests 04/24/18 04/24/18 04/24/18 06:40 06:40 06:40 WBC 2.7 L RBC 4.60 Hgb 13.7 Hct 38.8 MCV 84.3 MCH 29.9 MCHC 35.4 RDW 12.3 Plt Count 199 MPV 9.1 Sodium 139 Potassium 3.8 Chloride 102 Carbon Dioxide 29 Anion Gap 8 BUN 8 Creatinine 0.9 D Creat Clearance w eGFR > 60 Random Glucose 91 Calcium 9.1 Total Bilirubin 1.1 H D AST 12 L ALT 22 Alkaline Phosphatase 107 Total Protein 7.2 Albumin 3.6 Urine Color Urine Appearance Urine pH Ur Specific [place] Urine Protein Urine Glucose (UA) Urine Ketones Urine Blood Urine Nitrite Urine Bilirubin Urine Urobilinogen Ur Leukocyte Esterase RPR Titer HIV 1&2 Antibody Screen Negative HIV P24 Antigen Negative 04/24/18 04/24/18 06:40 12:00 WBC RBC Hgb Hct MCV MCH MCHC RDW Plt Count MPV Sodium Potassium Chloride Carbon Dioxide Anion Gap BUN Creatinine Creat Clearance w eGFR Random Glucose Calcium Total Bilirubin AST ALT Alkaline Phosphatase Total Protein Albumin Urine Color Yellow Urine Appearance Clear Urine pH 6.0 Ur Specific [place] 1.019 Urine Protein Negative Urine Glucose (UA) Negative Urine Ketones Negative Urine Blood Negative Urine Nitrite Negative Urine Bilirubin Negative Urine Urobilinogen 2.0 Ur Leukocyte Esterase Negative RPR Titer Nonreactive HIV 1&2 Antibody Screen HIV P24 Antigen LABS NOTED. - Treatment Hospital Course: Detoxed Safely - Medication Discharge Medications: Ambulatory Orders NK [No Known Home Medication] 07/11/17 - Diagnosis (1) Bereavement due to life event Status: Acute (2) Cannabis dependence, uncomplicated Status: Acute (3) Nicotine dependence Status: Acute Qualifiers: Nicotine product type: cigarettes Substance use status: in withdrawal Qualified Code(s): F17.213 - Nicotine dependence, cigarettes, with withdrawal (4) Opioid dependence with withdrawal Status: Acute (5) Weight loss Status: Acute (6) Depression (emotion) Status: Suspected Qualifiers: Depression Type: dysthymia Qualified Code(s): F34.1 - Dysthymic disorder (7) Back pain Status: Acute Qualifiers: Back pain location: low back pain Chronicity: acute Back pain laterality : midline Sciatica presence: without sciatica Qualified Code(s): M54.5 - Low back pain (8) Cocaine dependence, uncomplicated Status: Acute (9) Insomnia Status: Acute Qualifiers: Insomnia type: unspecified Qualified Code(s): G47.00 - Insomnia, unspecified (10) Substance induced mood disorder Status: Acute - AMA Did Patient Leave Against Medical Advice: Yes (PATIENT DID NOT WISH TO REMAIN TO COMPLETE DETOX REGIMEN.)
[2018-04-28] MEDS ORDERED: METHADONE HCL 5 MG TABLET (FOR DETOX USE ONLY) PO ONE (06:00)
== END 2018-04-27 12:43 | disposition left against medical advice (07) | DRG 770 ==
LOC: YASAS 15:11 → Y3N 17:19
PROVIDERS: ADMIT Surgery; ATTEND Surgery
PROC: HZ2ZZZZ Detoxification Services for Substance Abuse Treatment (ICD-10-PCS; principal; 2018-04-23)
DX: F11.23 Opioid dependence with withdrawal (principal); F14.20 Cocaine dependence, uncomplicated; F12.20 Cannabis dependence, uncomplicated; F17.213 Nicotine dependence, cigarettes, with withdrawal; F43.20 Adjustment disorder, unspecified; F34.1 Dysthymic disorder; F19.24 Other psychoactive substance dependence with psychoactive substance-induced mood disorder; G47.00 Insomnia, unspecified; M54.5 Low back pain; Z87.898 Personal history of other specified conditions
CPT/HCPCS: 36415; 80053; 81003; 85027; 86593; 87389; 93005; 93010

== ENCOUNTER 2019-03-12 10:26 | Inpatient (IN) | payer OTHER ==
[2019-03-12 11:05] VITALS: BMI 24.3
--- NOTE | 2019-03-12 13:05 | HP ---
COWS - Scale Resting Pulse: 1= [place] 81-100 Sweatin= Chills/Flushing Restless Observation: 1= Difficult to Sit Still Pupil Size: 1= Pupils >than Normal Bone or Joint Aches: 1= Mild Discomfort Runny Nose/ Eye Tearin= Nasal Congestion GI Upset > 30mins: 1= Stomach Cramp Tremor Observation: 1= Tremor [place], Not Seen Yawning Observation: 1= 1-2x During Session Anxiety or Irritability: 1=Feels Anxious/Irritable Goose Flesh Skin: 3=Piloerection COWS Score: 13 CIWA Score - Admission Criteria OASAS Guidelines: Admission for Medically Managed Detox: Requires at least one of the followin. CIWA greater than 12 2. Seizures within the past 24 hours 3. Delirium tremens within the past 24 hours 4. Hallucinations within the past 24 hours 5. Acute intervention needed for co occurring medical disorder 6. Acute intervention needed for co occurring psychiatric disorder 7. Severe withdrawal that cannot be handled at a lower level of care (continued vomiting, continued diarrhea, abnormal vital signs) requiring intravenous medication and/or fluids 8. Admission ROS [facility] Chief Complaint: heroin detox 23 yo with no med problems, on no meds, here for heroin detox. Started using about 2 years- inhaling heroin, no IV use. Has been to detox twice in the last year, relapsed 3 months ago- uses 1 bundle/day inhaling. No h/o OD, last here 6 months ago alcohol- occasional use, no h/o seizures, DT's benzo- occasional use, last use last week marijuana- occ use Istop- no meds Utox: fen, opi, benzo Allergies/Adverse Reactions: Allergies Allergy/AdvReac Type Severity Reaction Status Date / Time No Known Allergies Allergy Verified 03/12/19 10:57 Exam Limitations: No Limitations - Ebola screening Have you traveled outside of the country in the last 21 days: No Have you had contact with anyone from an Ebola affected area: No Do you have a fever: No - Review of Systems Constitutional: No Symptoms Reported Patient History - Patient Medical History Hx Anemia: No Hx Asthma: No Hx Chronic Obstructive Pulmonary Disease (COPD): No Hx Cancer: No Hx Cardiac Disorders: No Hx Congestive Heart Failure: No Hx Hypertension: No Hx Hypercholesterolemia: No Hx Pacemaker: No HX Cerebrovascular Accident: No Hx Seizures: No Hx Dementia: No Hx Diabetes: No Hx Gastrointestinal Disorders: No Hx Liver Disease: No Hx Genitourinary Disorders: No Hx Sexually Transmitted Disorders: No Hx Renal Disease (ESRD): No Hx Thyroid Disease: No Hx Human Immunodeficiency Virus (HIV): No (negative) Hx Hepatitis C: No Hx Depression: Yes Hx Suicide Attempt: No Hx Bipolar Disorder: No Hx Schizophrenia: No - Patient Surgical History Past Surgical History: No Hx Neurologic Surgery: No Hx Cataract Extraction: No Hx Cardiac Surgery: No Hx Lung Surgery: No Hx Breast Surgery: No Hx Breast Biopsy: No Hx Abdominal Surgery: No Hx Appendectomy: No Hx Cholecystectomy: No Hx Genitourinary Surgery: No Hx Section: No Hx Orthopedic Surgery: No Anesthesia Reaction: No - PPD History Date: 08/15/17 Results: 0MM PPD to be Administered?: Yes - Smoking Cessation Smoking history: Current every day smoker Have you smoked in the past 12 months: Yes Aproximately how many cigarettes per day: 40 Hx Chewing Tobacco Use: No Initiated information on smoking cessation: Yes 'Breaking Loose' booklet given: 03/12/19 - Substances abused Heroin Substance route: Inhalation Frequency: Daily Amount used: 10 bags Age of first use: 22 Date of last use: 03/11/19 Alcohol Substance route: Oral Frequency: 3-6 times per week Amount used: 1 quart of Jenise Age of first use: 21 Date of last use: 03/11/19 Family Disease History - Family Disease History Family Disease History: Heart Disease: Father ([place], ), Other: Father Admission Physical Exam BHS - Vital Signs Vital Signs: Vital Signs - 24 hr 03/12/19 10:59 Temperature 97.1 F L Pulse Rate 67 Respiratory 18 Rate Blood Pressure 108/71 - Physical General Appearance: Yes: Within Normal Limits HEENTM: Yes: Within Normal Limits Respiratory: Yes: Within Normal Limits Neck: Yes: Within Normal Limits Breast: Yes: Axillae mass/lump present Cardiology: Yes: Within Normal Limits Abdominal: Yes: Within Normal Limits Back: Yes: Within Normal Limits Musculoskeletal: Yes: Within Normal Limits Extremities: Yes: Within Normal Limits Neurological: Yes: Within Normal Limits, 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, Fully Oriented, Alert, Motor Strength 5/5, Normal Response Integumentary: Yes: Within Normal Limits Lymphatic: Yes: Within Normal Limits - Diagnostic (1) Nicotine dependence Current Visit: No Status: Acute Qualifiers: Nicotine product type: cigarettes Substance use status: in withdrawal Qualified Code(s): F17.213 - Nicotine dependence, cigarettes, with withdrawal (2) Opioid dependence with withdrawal Current Visit: No Status: Acute Breathalyzer - Breathalyzer Breathalyzer: 0 Urine Drug Screen - Test Device Lot number: [id number] Expiration date: 10/11/20 - Control Is test valid?: Yes - Results Drug screen NEGATIVE: No Urine drug screen results: FEN-Fentanyl, MOP-Opiates, BZO-Benzodiazepines Inpatient Rehab Admission - Rehab Decision to Admit Inpatient rehab admission?: No
[2019-03-12] MEDS ORDERED: MAG HYDROX/AL HYDROX/SIMETH 30 ML UNIT-DOSE CUP PO PRN (13:07)
[2019-03-12] MEDS ORDERED: MENTHOL/PHENOL 1 EACH UD MM PRN (13:07)
[2019-03-12] MEDS ORDERED: NICOTINE POLACRILEX 4 MG GUM BUC PRN (13:07)
[2019-03-12] MEDS ORDERED: ONDANSETRON *ODT* 4 MG TABLET SL PRN (13:07)
[2019-03-12] MEDS ORDERED: MAGNESIUM HYDROX 2400MG/30ML ORAL SUSPENSION 30 ML CUP PO PRN (13:07)
[2019-03-12] MEDS ORDERED: BISMUTH SUBSALICYLATE 262 MG/15 ML BTL PO PRN (13:07)
[2019-03-12] MEDS ORDERED: MAGNESIUM CITRATE 300 ML BOTTLE PO PRN (13:07)
[2019-03-12] MEDS ORDERED: ACETAMINOPHEN 325 MG TABLET (FP) PO PRN ×2 (13:07)
[2019-03-12] MEDS ORDERED: METHADONE HCL 10 MG TABLET (FOR DETOX USE ONLY) PO ONE ×2 (14:40→23:00)
[2019-03-12 17:08] LABS: HEMATOCRIT 44.4 % (35.4-49); HEMOGLOBIN 15.4 GM/dL (11.7-16.9); MCH 29.6 pg (25.7-33.7); MCHC 34.6 g/dl (32.0-35.9); MEAN CELL VOLUME 85.5 fl (80-96); MEAN PLT VOLUME 9.6 fl (7.5-11.1); PLATELET COUNT 211 K/MM3 (134-434); RDW 12.9 % (11.9-15.9); WHITE BLOOD COUNT 3.3 K/mm3 (4.0-10.0)
[2019-03-12 17:33] LABS: ALBUMIN 4.2 g/dl (3.4-5.0); ALK PHOS 124 U/L (45-117); ANION GAP 4 MMOL/L (8-16); BILIRUBIN,TOTAL 0.8 mg/dL (0.2-1); BLOOD UREA NITROGEN 11 mg/dL (7-18); CALCIUM 9.2 mg/dL (8.5-10.1); CHLORIDE 105 mmol/L (98-107); CO2 30 mmol/L (21-32); CREATININE 0.9 mg/dL (0.55-1.3); GLUCOSE,RANDOM 80 mg/dL (74-106); POTASSIUM 4.2 mmol/L (3.5-5.1); SGOT/AST 38 U/L (15-37); SGPT/ALT 59 U/L (13-61); SODIUM 139 mmol/L (136-145); TOT PROT 7.8 g/dl (6.4-8.2)
[2019-03-12] MEDS: THIAMINE HCL 100 MG TABLET (FP) PO SCH (22:09)
[2019-03-12] MEDS: hydrOXYzine PAMOATE 25 MG CAPSULE (FP) PO PRN (22:09)
[2019-03-12] MEDS: MELATONIN 5 MG TABLETS PO PRN (23:48)
[2019-03-13] MEDS: METHOCARBAMOL 500 MG TABLET PO PRN ×3 (01:21→13:52)
[2019-03-13] MEDS: cloNIDine HCL 0.1 MG TABLET PO PRN ×2 (02:33→07:23)
[2019-03-13] MEDS: hydrOXYzine PAMOATE 25 MG CAPSULE (FP) PO PRN ×3 (02:33→19:04)
[2019-03-13] MEDS: PRENATAL VITAMINS W/ FOLIC ACID TABLET (FP) PO SCH (09:21)
[2019-03-13] MEDS: diazePAM 5 MG TABLET PO PRN ×3 (09:21→20:08)
[2019-03-13] MEDS: NICOTINE 21 MG/24 HOURS TOPICAL PATCH TD SCH (09:23)
[2019-03-13] MEDS ORDERED: METHADONE HCL 10 MG TABLET (FOR DETOX USE ONLY) PO ONE (10:00)
--- NOTE | 2019-03-13 10:17 | PN ---
BHS COWS - Scale Resting Pulse: 0= [place] 80 or Below Sweatin= Chills/Flushing Restless Observation: 1= Difficult to Sit Still Pupil Size: 1= Pupils >than Normal Bone or Joint Aches: 1= Mild Discomfort Runny Nose/ Eye Tearin= Nasal Congestion GI Upset > 30mins: 1= Stomach Cramp Tremor Observation of Outstretched Hands: 2= Slight Tremor Visible Yawning Observation: 1= 1-2x During Session Anxiety or Irritability: 2=Irritable/Anxious Goose Flesh Skin: 0=Smooth Skin COWS Score: 11 BHS Progress Note (SOAP) Subjective: anxious restlessness reporting valium work better during opiate detox discontinue clonidine begin valium prn Objective: 03/13/19 10:16 Vital Signs Temperature 96.6 F L 03/13/19 09:04 Pulse Rate 70 03/13/19 09:04 Respiratory Rate 18 03/13/19 09:04 Blood Pressure 105/71 03/13/19 09:04 O2 Sat by Pulse Oximetry (%) Laboratory Last Values WBC 3.3 K/mm3 (4.0-10.0) L 03/12/19 12:25 RBC 5.20 M/mm3 (4.00-5.60) 03/12/19 12:25 Hgb 15.4 GM/dL (11.7-16.9) 03/12/19 12:25 Hct 44.4 % (35.4-49) 03/12/19 12:25 MCV 85.5 fl (80-96) 03/12/19 12:25 MCH 29.6 pg (25.7-33.7) 03/12/19 12:25 MCHC 34.6 g/dl (32.0-35.9) 03/12/19 12:25 RDW 12.9 % (11.9-15.9) 03/12/19 12:25 Plt Count 211 K/MM3 (134-434) 03/12/19 12:25 MPV 9.6 fl (7.5-11.1) 03/12/19 12:25 Sodium 139 mmol/L (136-145) 03/12/19 12:25 Potassium 4.2 mmol/L (3.5-5.1) 03/12/19 12:25 Chloride 105 mmol/L (98-107) 03/12/19 12:25 Carbon Dioxide 30 mmol/L (21-32) 03/12/19 12:25 Anion Gap 4 MMOL/L (8-16) L 03/12/19 12:25 BUN 11 mg/dL (7-18) 03/12/19 12:25 Creatinine 0.9 mg/dL (0.55-1.3) 03/12/19 12:25 Creat Clearance w eGFR 106.52 (>60) 03/12/19 12:25 Random Glucose 80 mg/dL (74-106) 03/12/19 12:25 Calcium 9.2 mg/dL (8.5-10.1) 03/12/19 12:25 Total Bilirubin 0.8 mg/dL (0.2-1) 03/12/19 12:25 AST 38 U/L (15-37) H 03/12/19 12:25 ALT 59 U/L (13-61) 03/12/19 12:25 Alkaline Phosphatase 124 U/L (45-117) H 03/12/19 12:25 Total Protein 7.8 g/dl (6.4-8.2) 03/12/19 12:25 Albumin 4.2 g/dl (3.4-5.0) 03/12/19 12:25 RPR Titer Nonreactive (NONREACTIVE) 03/12/19 12:25 lab noted Assessment: 03/13/19 10:17 opiate withdrawal sx Plan: continue detox
[2019-03-13] MEDS: THIAMINE HCL 100 MG TABLET (FP) PO SCH (22:09)
[2019-03-13] MEDS: MELATONIN 5 MG TABLETS PO PRN (22:09)
[2019-03-14] MEDS: METHOCARBAMOL 500 MG TABLET PO PRN ×2 (05:19→21:20)
[2019-03-14] MEDS: diazePAM 5 MG TABLET PO PRN ×3 (05:19→22:09)
[2019-03-14] MEDS ORDERED: METHADONE HCL 10 MG TABLET (FOR DETOX USE ONLY) PO ONE (10:00)
[2019-03-14] MEDS: PRENATAL VITAMINS W/ FOLIC ACID TABLET (FP) PO SCH (10:12)
[2019-03-14] MEDS: NICOTINE 21 MG/24 HOURS TOPICAL PATCH TD SCH (10:12)
[2019-03-14] MEDS: IBUPROFEN 400 MG TABLET (FP) PO PRN (10:13)
--- NOTE | 2019-03-14 12:28 | PN ---
BHS COWS - Scale Resting Pulse: 0= [place] 80 or Below Sweatin= Chills/Flushing Restless Observation: 1= Difficult to Sit Still Pupil Size: 1= Pupils >than Normal Bone or Joint Aches: 2= Severe Diffuse Aches Runny Nose/ Eye Tearin= Nasal Congestion GI Upset > 30mins: 0= None Tremor Observation of Outstretched Hands: 1= Tremor [place], Not Seen Yawning Observation: 0= None Anxiety or Irritability: 1=Feels Anxious/Irritable Goose Flesh Skin: 0=Smooth Skin COWS Score: 8 BHS Progress Note (SOAP) Subjective: Pt states he still feels like he is in withdral, will consider suboxone for residential maintenance treatment O: Vital Signs - 24 hr 03/13/19 03/13/19 03/14/19 17:02 21:26 00:30 Temperature 97.1 F L 98.5 F Pulse Rate 70 72 Respiratory 17 16 18 Rate Blood Pressure 100/66 119/83 03/14/19 03/14/19 03/14/19 03:30 06:25 09:12 Temperature 97 F L 97.3 F L Pulse Rate 80 75 Respiratory 16 18 18 Rate Blood Pressure 117/80 122/77 Laboratory Tests 03/12/19 03/12/19 03/12/19 12:25 12:25 12:25 WBC 3.3 L RBC 5.20 Hgb 15.4 Hct 44.4 MCV 85.5 MCH 29.6 MCHC 34.6 RDW 12.9 Plt Count 211 MPV 9.6 Sodium 139 Potassium 4.2 Chloride 105 Carbon Dioxide 30 Anion Gap 4 L BUN 11 Creatinine 0.9 Creat Clearance w eGFR 106.52 Random Glucose 80 Calcium 9.2 Total Bilirubin 0.8 AST 38 H ALT 59 Alkaline Phosphatase 124 H Total Protein 7.8 Albumin 4.2 RPR Titer Nonreactive a/p: continue methadone detox protocol prn clonidine/vistaril for symptomatic treatment to talk to counselor re residential Suboxone MAT
[2019-03-14] MEDS: THIAMINE HCL 100 MG TABLET (FP) PO SCH (22:08)
[2019-03-14] MEDS: MELATONIN 5 MG TABLETS PO PRN (22:08)
[2019-03-15] MEDS ORDERED: METHADONE HCL 10 MG TABLET (FOR DETOX USE ONLY) PO ONE (10:00)
[2019-03-15] MEDS: diazePAM 5 MG TABLET PO PRN ×3 (10:10→22:12)
[2019-03-15] MEDS: NICOTINE 21 MG/24 HOURS TOPICAL PATCH TD SCH (10:10)
[2019-03-15] MEDS: PRENATAL VITAMINS W/ FOLIC ACID TABLET (FP) PO SCH (10:10)
--- NOTE | 2019-03-15 10:24 | PN ---
BHS COWS - Scale Resting Pulse: 1= [place] 81-100 Sweatin= Chills/Flushing Restless Observation: 3= Extraneous Movement Pupil Size: 0= Normal to Room Light Bone or Joint Aches: 1= Mild Discomfort Runny Nose/ Eye Tearin= None GI Upset > 30mins: 0= None Tremor Observation of Outstretched Hands: 1= Tremor [place], Not Seen Yawning Observation: 0= None Anxiety or Irritability: 2=Irritable/Anxious Goose Flesh Skin: 0=Smooth Skin COWS Score: 9 BHS Progress Note (SOAP) Subjective: C/O ANXIETY, IRRITABILITY, "JUMPY" HOT/COLD CHILLS, INTERMITTENT SLEEP, DECREASED APPETITE. Objective: 03/15/19 10:23 Vital Signs 03/15/19 03/15/19 03/15/19 03:30 06:09 09:35 Temperature 97.1 F L 97.6 F Pulse Rate 55 L 95 H Respiratory 18 18 18 Rate Blood Pressure 111/74 132/89 Laboratory Tests 03/12/19 03/12/19 03/12/19 12:25 12:25 12:25 WBC 3.3 L RBC 5.20 Hgb 15.4 Hct 44.4 MCV 85.5 MCH 29.6 MCHC 34.6 RDW 12.9 Plt Count 211 MPV 9.6 Sodium 139 Potassium 4.2 Chloride 105 Carbon Dioxide 30 Anion Gap 4 L BUN 11 Creatinine 0.9 Creat Clearance w eGFR 106.52 Random Glucose 80 Calcium 9.2 Total Bilirubin 0.8 AST 38 H ALT 59 Alkaline Phosphatase 124 H Total Protein 7.8 Albumin 4.2 RPR Titer Nonreactive Assessment: 03/15/19 10:23 WITHDRAWAL SX Plan: CONTINUE DETOX/MEDS DIRECTED. ENSURE DIRECTED INCREASE PO FLUIDS
[2019-03-15] MEDS: IBUPROFEN 400 MG TABLET (FP) PO PRN (17:24)
[2019-03-15] MEDS: MELATONIN 5 MG TABLETS PO PRN (22:12)
[2019-03-15] MEDS: METHOCARBAMOL 500 MG TABLET PO PRN (22:12)
[2019-03-15] MEDS: THIAMINE HCL 100 MG TABLET (FP) PO SCH (22:12)
[2019-03-16] MEDS: METHOCARBAMOL 500 MG TABLET PO PRN (05:37)
[2019-03-16] MEDS ORDERED: METHADONE HCL 5 MG TABLET (FOR DETOX USE ONLY) PO ONE (06:00)
[2019-03-16 09:11] VITALS: BP 129/99; PULSE 103; TEMP 99.4
--- NOTE | 2019-03-16 15:22 | DS ---
[facility] Detox Discharge Summary Admission Date: 03/12/19 Discharge Date: 03/16/19 - History Present History: Opioid Dependence Additional Comments: 23 years old male admitted on 03/12/19 for opiate withdrawal stabilization completed detox regimen feeling better aftercare medication assisted maintenance treatment program Pertinent Past History: bring in medication list and lab report to aftercare appointment - Physical Exam Results Vital Signs: Vital Signs Temperature 99.4 F 03/16/19 09:05 Pulse Rate 103 H 03/16/19 09:05 Respiratory Rate 20 03/16/19 09:05 Blood Pressure 129/99 03/16/19 09:05 O2 Sat by Pulse Oximetry (%) Pertinent Admission Physical Exam Findings: opiate withdrawal sx Laboratory Last Values WBC 3.3 K/mm3 (4.0-10.0) L 03/12/19 12:25 RBC 5.20 M/mm3 (4.00-5.60) 03/12/19 12:25 Hgb 15.4 GM/dL (11.7-16.9) 03/12/19 12:25 Hct 44.4 % (35.4-49) 03/12/19 12:25 MCV 85.5 fl (80-96) 03/12/19 12:25 MCH 29.6 pg (25.7-33.7) 03/12/19 12:25 MCHC 34.6 g/dl (32.0-35.9) 03/12/19 12:25 RDW 12.9 % (11.9-15.9) 03/12/19 12:25 Plt Count 211 K/MM3 (134-434) 03/12/19 12:25 MPV 9.6 fl (7.5-11.1) 03/12/19 12:25 Sodium 139 mmol/L (136-145) 03/12/19 12:25 Potassium 4.2 mmol/L (3.5-5.1) 03/12/19 12:25 Chloride 105 mmol/L (98-107) 03/12/19 12:25 Carbon Dioxide 30 mmol/L (21-32) 03/12/19 12:25 Anion Gap 4 MMOL/L (8-16) L 03/12/19 12:25 BUN 11 mg/dL (7-18) 03/12/19 12:25 Creatinine 0.9 mg/dL (0.55-1.3) 03/12/19 12:25 Creat Clearance w eGFR 106.52 (>60) 03/12/19 12:25 Random Glucose 80 mg/dL (74-106) 03/12/19 12:25 Calcium 9.2 mg/dL (8.5-10.1) 03/12/19 12:25 Total Bilirubin 0.8 mg/dL (0.2-1) 03/12/19 12:25 AST 38 U/L (15-37) H 03/12/19 12:25 ALT 59 U/L (13-61) 03/12/19 12:25 Alkaline Phosphatase 124 U/L (45-117) H 03/12/19 12:25 Total Protein 7.8 g/dl (6.4-8.2) 03/12/19 12:25 Albumin 4.2 g/dl (3.4-5.0) 03/12/19 12:25 RPR Titer Nonreactive (NONREACTIVE) 03/12/19 12:25 lab noted - Treatment Hospital Course: Detox Protocol Followed, Detoxed Safely, Responded well, Discharged Condition Good, Rehab Referral Accepted Patient has Accepted a Rehab Referral to: medication assisted maintenance treatment program - Medication Discharge Medications: Ambulatory Orders NK [No Known Home Medication] 07/11/17 - Diagnosis (1) Nicotine dependence Status: Acute Qualifiers: Nicotine product type: cigarettes Substance use status: in withdrawal Qualified Code(s): F17.213 - Nicotine dependence, cigarettes, with withdrawal (2) Opioid dependence, uncomplicated Status: Acute (3) Substance induced mood disorder Status: Suspected (4) Weight loss Status: Acute - AMA Did Patient Leave Against Medical Advice: No
== END 2019-03-16 09:18 | disposition home or self-care (01) | DRG 773 ==
LOC: YASAS 10:26 → Y3N 13:44
PROVIDERS: ADMIT Surgery; ATTEND Surgery
PROC: HZ2ZZZZ Detoxification Services for Substance Abuse Treatment (ICD-10-PCS; principal; 2019-03-12)
DX: F11.23 Opioid dependence with withdrawal (principal); F11.10 Opioid abuse, uncomplicated; F13.10 Sedative, hypnotic or anxiolytic abuse, uncomplicated; F12.10 Cannabis abuse, uncomplicated; F17.213 Nicotine dependence, cigarettes, with withdrawal; F19.24 Other psychoactive substance dependence with psychoactive substance-induced mood disorder; R63.4 Abnormal weight loss; Z68.24 Body mass index [BMI] 24.0-24.9, adult
CPT/HCPCS: 36415; 80053; 85027; 86593; J0735

== ENCOUNTER 2025-02-17 12:42 | Inpatient (IN) | payer OTHER ==
[2025-02-17] MEDS ORDERED: IBUPROFEN 400 MG TABLET (FP) PO PRN (14:04)
[2025-02-17] MEDS ORDERED: BENZONATATE 200 MG CAPSULE PO PRN (14:04)
[2025-02-17] MEDS ORDERED: POLYETHYLENE GLYCOL (HEALTHYLAX) 3350 17 GM PACKET PO PRN (14:04)
[2025-02-17] MEDS ORDERED: LOPERAMIDE HCL 2 MG CAPSULE PO PRN (14:04)
[2025-02-17] MEDS ORDERED: NICOTINE POLACRILEX 2 MG GUM BUC PRN (14:04)
[2025-02-17] MEDS ORDERED: MAGNESIUM HYDROX 2400MG/30ML ORAL SUSPENSION 30 ML CUP PO PRN (14:04)
[2025-02-17] MEDS ORDERED: MAG HYDROX/AL HYDROX/SIMETH 30 ML UNIT-DOSE CUP PO PRN (14:04)
[2025-02-17] MEDS ORDERED: guaiFENesin 600 MG TABLET.ER (FP) PO PRN (14:04)
[2025-02-17] MEDS ORDERED: BENZOCAINE/MENTHOL (CHLORASEPTIC ) LOZENGE MM PRN (14:04)
[2025-02-17] MEDS ORDERED: NALOXONE (NARCAN) HCL 4 MG/0.1 ML SPRAY NS PRN (14:04)
[2025-02-17] MEDS ORDERED: IBUPROFEN 600 MG TABLET (FP) PO PRN (14:04)
[2025-02-17] MEDS ORDERED: BISMUTH SUBSALICYLATE 524 MG/30 ML PO PRN (14:04)
[2025-02-17] MEDS ORDERED: NICOTINE POLACRILEX 2 MG LOZENGE BC PRN (14:04)
[2025-02-17] MEDS ORDERED: ACETAMINOPHEN 325 MG TABLET (FP) PO PRN (14:04)
[2025-02-17] MEDS ORDERED: P-EPHED 60MG/TRIPROLIDI 2.5MG TABLET PO PRN (14:04)
[2025-02-17 14:41] VITALS: BMI 21.9
[2025-02-17] MEDS: NICOTINE 14 MG/24 HOURS TOPICAL PATCH TD SCH (15:56)
[2025-02-17] MEDS: THIAMINE 100 MG TABLET PO SCH (22:43)
[2025-02-17] MEDS: MELATONIN 5 MG TABLETS PO SCH (22:43)
[2025-02-17] MEDS: METHOCARBAMOL 500 MG TABLET PO PRN (22:43)
[2025-02-17] MEDS: GABAPENTIN 100 MG CAPSULE PO SCH (23:08)
[2025-02-17] MEDS: traZODone HCL 50 MG TABLET (FP) PO ONE (23:08)
[2025-02-18] MEDS: ONDANSETRON *ODT* 4 MG TABLET SL PRN (01:20)
[2025-02-18] MEDS: TRIMETHOBENZAMIDE HCL 200MG/2ML INJ IM ONE ×2 (02:08→10:00)
[2025-02-18] MEDS: methaDONE 40 MG, methaDONE 30 MG PO SCH (05:53)
[2025-02-18] MEDS: hydrOXYzine PAMOATE 25 MG CAPSULE (FP) PO PRN (05:57)
[2025-02-18] MEDS ORDERED: methaDONE HCL 40 MG DISPERSABLE TABLET PO SCH (06:00)
[2025-02-18] MEDS: DICYCLOMINE HCL 10 MG CAPSULE PO PRN (06:41)
[2025-02-18] MEDS ORDERED: chlordiazePOXIDE HCL 25 MG CAPSULE PO PRN (08:50)
[2025-02-18] MEDS ORDERED: diazePAM 5 MG TABLET PO PRN ×2 (09:22→17:00)
[2025-02-18] MEDS ORDERED: cloNIDine HCL 0.1 MG TABLET PO SCH (10:00)
[2025-02-18] MEDS: diazePAM 5 MG TABLET PO SCH ×2 (10:34→16:50)
[2025-02-18] MEDS: PRENATAL VITAMINS W/ FOLIC ACID TABLET (FP) PO SCH (10:35)
[2025-02-18] MEDS ORDERED: chlordiazePOXIDE HCL 25 MG CAPSULE PO SCH (11:00)
[2025-02-18 12:10] LABS: HEMATOCRIT 43.1 % (40.1-51.0); HEMOGLOBIN 14.9 g/dL (13.7-17.5); MCHC 34.6 g/dl (32.3-36.5); MEAN CELL VOLUME 82.6 fl (79.0-92.2); MEAN PLT VOLUME 10.5 fl (9.4-12.4); PLATELET COUNT 350 x10^3/uL (163-337); RDW 11.7 % (11.9-15.3)
[2025-02-18 12:16] LABS: POTASSIUM 3.5 mmol/L (3.5-5.1)
[2025-02-18 12:30] LABS: CALCIUM 10.2 mg/dL (8.5-10.1)
[2025-02-18 12:31] LABS: ALBUMIN 4.7 g/dl (3.4-5.0); BLOOD UREA NITROGEN 9.2 mg/dL (7-18)
[2025-02-18 12:34] LABS: CREATININE 1.1 mg/dL (0.55-1.3)
[2025-02-18 12:35] LABS: BILIRUBIN,TOTAL 0.8 mg/dL (0.2-1)
[2025-02-18 12:36] LABS: TOT PROT 8.7 g/dl (6.4-8.2)
[2025-02-18] MEDS: LORazepam 2 MG/ML SDV VIAL IM ONE (14:00)
[2025-02-18 18:01] VITALS: BP 138/60; PULSE 85; RESP 17; TEMP 97.6
[2025-02-19] MEDS ORDERED: hydrOXYzine HCL 50 MG TABLET PO PRN (02:58)
[2025-02-19] MEDS: GABAPENTIN 100 MG CAPSULE PO SCH (07:35)
[2025-02-19] MEDS ORDERED: methaDONE HCL 10 MG TABLET PO ONE (10:00)
[2025-02-20] MEDS ORDERED: cloNIDine HCL 0.1 MG TABLET PO PRN
[2025-02-20] MEDS ORDERED: chlordiazePOXIDE HCL 25 MG CAPSULE PO SCH (05:00)
[2025-02-20] MEDS ORDERED: diazePAM 5 MG TABLET PO SCH (06:00)
[2025-02-21] MEDS ORDERED: chlordiazePOXIDE HCL 10 MG CAPSULE PO PRN
[2025-02-21] MEDS ORDERED: chlordiazePOXIDE HCL 10 MG CAPSULE PO SCH (05:00)
[2025-02-21] MEDS ORDERED: diazePAM 5 MG TABLET PO SCH (06:00)
[2025-02-21] MEDS ORDERED: methaDONE HCL 10 MG TABLET PO ONE (10:00)
[2025-02-22] MEDS ORDERED: chlordiazePOXIDE HCL 10 MG CAPSULE PO SCH (05:00)
[2025-02-22] MEDS ORDERED: diazePAM 5 MG TABLET PO ONE (06:00)
[2025-02-23] MEDS ORDERED: chlordiazePOXIDE HCL 10 MG CAPSULE PO ONE (05:00)
[2025-02-23] MEDS ORDERED: methaDONE HCL 10 MG TABLET PO ONE (10:00)
== END 2025-02-19 09:05 | disposition short-term general hospital (02) | DRG 773 ==
LOC: YASAS 12:42 → Y6N 14:57
PROVIDERS: ADMIT Allergy & Immunology; ATTEND Allergy & Immunology
PROC: HZ2ZZZZ Detoxification Services for Substance Abuse Treatment (ICD-10-PCS; principal; 2025-02-17)
DX: F11.23 Opioid dependence with withdrawal (principal); F13.230 Sedative, hypnotic or anxiolytic dependence with withdrawal, uncomplicated; F14.20 Cocaine dependence, uncomplicated; F12.20 Cannabis dependence, uncomplicated; F17.210 Nicotine dependence, cigarettes, uncomplicated; F19.24 Other psychoactive substance dependence with psychoactive substance-induced mood disorder; K92.0 Hematemesis; R63.4 Abnormal weight loss; Z68.20 Body mass index [BMI] 20.0-20.9, adult
CPT/HCPCS: 36415; 80053; 80305; 80307; 85027; 86780; 93005; 93010; Q0162